=== PATIENT | male | born 1955 | race Caucasian/White ===

== ENCOUNTER → 2021-06-27 15:04 | Outpatient (BNVA) | payer OTHER, SELFPAY | PROVIDERS: PCP Internal Medicine; Visit Provider Urology ==

== ENCOUNTER 2024-07-22 10:19 | Outpatient (AMB) | payer OTHER, SELFPAY ==
--- NOTE | 2024-07-22 10:22 | MHC.OFFVIS ---
Intake Visit Reasons: 1Y PSA(set) Intake Note: Patient is Present for Follow Up PSA Urology Medication:None Antibiotic Allergies: Penicillin Blood Thinners: None LAB: 07/09/2024 - PSA: 2.6 I[employer] Websphere Commerce Developer Required: No Accompanied by: Self / Same As Patient Allergies penicillin G Allergy (Unknown, Verified 07/22/24 10:23) Unknown HPI Comments Details: Cristopher DAWSON is a very pleasant male. He is a patient of Dr. Duarte. He is seen in the office today for the following urologic conditions. - lower urinary tract symptoms Yearly follow-up PSA stable Effective urinary parameters Discussed neighbor who had recently moved New neighbor had sold prior house in [place] to [place] Elevated PSA/Abnormal LEO:? PSA around 3 Has been maintaining activity Good urinary parameters Follow-up 1 year with PSA ? Current management is?observation.? Laboratory investigations include?a total PSA evaluation ?05/2016 1.4, 07/2017 2.7, 02/16 1.8, 03/19 1.8, 04/20 2.2, 10/22 2.3, 06/22 3.0, 06/24 2.6 ? Individualized Prostate Cancer Risk Calculator?< 5% high risk, Would like to continue with observation and understands and accepts the risks of a possible delay in diagnosis.? Overall symptoms are?mild.? Therapeutic plan will be?continued surveillance.? [facility] Medical History Benign prostatic hyperplasia without lower urinary tract symptoms Primary osteoarthritis, left shoulder Primary osteoarthritis of left knee Rising PSA level Rotator cuff impingement syndrome of left shoulder Surgical History History of surgery Review of Systems Const Denies chills and Denies fever(s) Card Reports no additional complaints and Denies syncope Resp Denies cough GI Denies abdominal pain and Denies heartburn Reports as per HPI and Denies change in libido Neuro Denies syncope Psych Denies change in libido Endo Denies change in libido Physical Exam Const General: cooperative, healthy appearing, comfortable and no acute distress Orientation/consciousness: patient oriented x3 HEENT Face and sinus: Yes normal facial exam Mouth: moist mucous membranes Neck Neck: Yes normal visual inspection, Yes full ROM and Yes trachea midline Chest Chest palpation & inspection: normal inspection of the chest Resp Effort & Inspection: normal respiratory effort, able to speak in complete sentences and no respiratory distress GI Inspection: Yes normal to inspection Back/Spine/Pelvis Cervical Spine: normal cervical lordosis Thoracic/Lumbar Spine: thoracic and lumbar spine normal to inspection Skin General skin exam: no rashes or lesions noted Neuro General: patient oriented x3, gait normal, tone normal and moves all extremities Extrem General: Yes normal to inspection and Yes capillary refill normal Assessment & Plan Assessment & Plan (1) Benign prostatic hyperplasia without lower urinary tract symptoms: Code(s): N40.0 - Benign prostatic hyperplasia without lower urinary tract symptoms Category: Medical Plan Twelve month follow-up Orders: Orders Prostate Specific Antigen 364 Days N40.0 - Benign prostatic hyperplasia without lower urinary tract symptoms Patient Instructions: Imaging studies, laboratory and physical exam results were discussed and reviewed in detail. No major barriers to patient understanding were identified. An opportunity to ask questions regarding the treatment plan was provided. All questions were answered. The patient expressed understanding and agreement with the above treatment plan. The patient is aware they should contact our office by phone for worsening of their current condition or the appearance of new urologic symptoms. Compliance is encouraged with any medications and followup testing that is ordered. It is a privilege to participate in the urologic care of your patient. If you have any questions or concerns regarding treatment for the above conditions, or other urologic issues, please do not hesitate to contact me. The office telephone contact is [phone]. This note is constructed using voice recognition software. While every effort has been made to ensure accuracy chemical etching processor errors may have been included. Yours sincerely, Dr Yaakov Quinones MD, [facility] - Urology Providers of Expert, Compassionate Care for the Genitourinary System Coding Level of Care Code Est Pt Level 4 (43571) Diagnoses Benign prostatic hyperplasia without lower urinary tract symptoms N40.0
== END 2024-07-22 11:12 | disposition home or self-care (01) ==
PROVIDERS: PCP Internal Medicine; Visit Provider Urology
DX: N40.0 Benign prostatic hyperplasia without lower urinary tract symptoms (principal)
CPT/HCPCS: 99214

== ENCOUNTER 2025-07-22 10:51 | Outpatient (AMB) | payer MEDICARE, SELFPAY ==
--- OUTSIDE RECORDS SUMMARY | 2025-07-19 14:00 | XMS_ITS | Encounter Summary ---
Author Organization Formerly [facility] Address [address] [place] [address] Care Team Providers Care Tire Building Supervisor Name Role Phone Cole Duarte MD Primary Care Provider [phone] Kumar Patino MD Unavailable [phone] Reason for Visit * Reason Comments OT Treatment * Rehabilitation (Routine) - Authorized Specialty Diagnoses / Procedures Referred By Contact Referred To Contact Occupational Therapy / Rehabilitation Diagnoses Status post total shoulder replacement, unspecified laterality Fernando Arreola MD [address] [place] [address] Phone: tel:[phone] fax:[phone] [facility] [address] [place] [address] Phone: tel: fax: Referral ID Status Reason Start Date Expiration Date Visits Requested Visits Authorized [id number] Authorized Support Services 08/31/2025 200 200 Encounter Details Date Type Department Care Team (Late st Contact Info) Description 07/19/2025 2:00 PM EST Treatment [facility] [address] [facility] [address] [place] [phone] System, Provider Not In Connie Mancilla, OT [address] [place] [address] Primary osteoarthritis of left shoulder (Primary Dx); S/P reverse total shoulder arthroplasty, left Social History Tobacco Use Types Packs/Day Years Used Date Smoking Tobacco: Former Cigarettes Smokeless Tobacco: Never Comments:For a few years as a teen Alcohol Use Standard Drinks/Week Comments Yes 0 (1 standard drink = 0.6 oz pure alcohol) 6-8 drinks/weekend advised to stop 2 weeks before surgery AUDIT-C Answer Date Recorded Q1: How often do you have a drink containing alc ohol? 2-3 times a week 10/24/2023 Q2: How many drinks containi ng alcohol do you have on a typical day when you are drinking? 3 or 4 10/24/2023 Q3: How often do you have si x or more drinks on one occasion? Never 10/24/2023 Sex and Gender Information Value Date Recorded Sex Assigned at Male 11/12/2023 3:25 PM EDT Legal Sex Male 11:33 PM EDT Gender Identity Male 09/04/2023 12:28 PM EST Sexual Orientation Heterosexual (straight) 11/12 7:00 AM EDT documented as of this encounter Miscellaneous Notes * Daily/Treatment Note - Connie Mancilla OT - 07/21/2025 7:57 AM EST Occupational Therapy Daily Note Diagnoses ICD-10-CM 1. Primary osteoarthritis of left shoulder M19.012 2. S/P reverse total shoulder arthroplasty, left Z96.612 Interpretation Services: Subjective: Daily Subjective - FriJuly 19, 2025 Row Name Treatment from 07/19/2025 in [facility] Subjective Subjective I have been using 3 pound weights sitting on my Peloton Treatment Performed: Ther Act/ Neuro/ Manual/ Therex- OT - FriJuly 19, 2025 Row Name Treatment from 07/19/2025 in [facility] Manual therapy Justification to decrease spasm and pain;to increase capsular ROM and decrease pain;improve scar mobility 1 scar mobs along anterior scar length 2 Manual stretch to shoulder flexion and scaption to end-ranges within patient tolerance 3 Gentle manual stretch to ER at side with minimal OP, IR to stomach Neuro-muscular Re-education Justification to increase static and dynamic stability 6 RTB rows 2 x 10 Therapeutic Procedures Justification to increase range of motion, strength and endurance 1 AAROM shoulder flexion in supine with cane x 10 3 Pulleys flexion x 3 min Assessment/ Plan: Daily Assessment and Plan - Tue July 19, 2025 Row Name Treatment from 07/19/2025 in [facility] Assessment/ Plan Assessment Patient reports self progression and performing shoulder abduction with 3 pound weights.Review of postoperative protocol and that he should not be performing concentric shoulder strengthening at less than 6 weeks. Cautioned patient against weightbearing excessively, at 6 weeks lifting increases to 5 pound max. Plan Progress to next phase of protocol at 6 weeks. Objective Measurements: documented in this encounter Plan of Treatment Not on file documented as of this encounter Goals Goal Patient Goal Type Associated Problems Recent Progress Patient-Stated? Author OT LTGs Occupational Therapy No Connie Mancilla OT Note: L shoulder active flexion will increase to at least 130 deg to reach OH Patient will demonstrate independence with HEP, including upgrades Patient c/o pain will improve to < 2/10 at worst for improved activity tolerance during ADL/IADL performance PROMIS UE score will improve to > 40 demonstrating improved functional performance Length of goals: 6 weeks OT STGs Occupational Therapy No Connie Mancilla OT Note: L shoulder passive flexion will increase to at least 120 deg in prep for progression of AROM PROMIS UE score will improve to at least 37.4 demonstrating improved functional performance Length of goals: 3 weeks PT LTG 1 Physical Therapy On track(2023 3:40 PM EDT) No Monalisa Groves, PT Note: Patient will improve left hip flexor and quad strength to 4+ out of 5 to be able to perform sit to stand transfers 5 out of 5 times without upper extremity support without loss of balance and without left knee pain within 8 weeks. Patient will be able to ambulate on uneven surface without assistive device independently x 60 minutes without left knee pain within 8 weeks. Decrease LEFS score by 20 points within 8 weeks. This documentation is for closing of the episode of care. The patient was not treated on the date of this documentation and there are no charges associated with this documentation. documented as of this encounter Visit Diagnoses Diagnosis Primary osteoarthritis of left shoulder- Primary S/P reverse total shoulder arthroplasty, left documented in this encounter Care Teams Tire Building Supervisor Relationship Specialty Start Date End Date Cole Duarte MD [address] [place] [id number] PCP - General Internal Medicine 09/05/23 Kumar Patino MD [address] [place] [id number] Surgery, Orthopedic 10/24/23 documented as of this encounter
--- OUTSIDE RECORDS SUMMARY | 2025-07-20 15:17 | XMS_ITS | Encounter Summary ---
Author Organization [facility] Address [address] [place] [address] Care Team Providers Care Nanotechnologist Name Role Phone Cole Duarte MD Primary Care Provider [phone] Reason for Referral * Imaging (Routine) - Authorized Specialty Diagnoses / Procedures Referred By Contac t Referred To Contact Radiology Diagnoses Unspecified hearing loss, right ear Procedures MR Brain wo and w Contrast Cole Duarte MD [address] [place] [address] Phone: tel: fax: [facility] Referral ID Status Reason Start Date Expiration Date V isits Requested Visits Authorized [id number] Authorized 07/19/2025 07/19/2026 1 1 Reason for Visit * Imaging (Routine) - Authorized Specialty Diagnoses / Procedures Referred By Contac t Referred To Contact Radiology Diagnoses Unspecified hearing loss, right ear Procedures MR Brain wo and w Contrast Cole Duarte MD [address] [place] [address] Phone: tel: fax: [facility] Referral ID Status Reason Start Date Expiration Date V isits Requested Visits Authorized [id number] Authorized 07/19/2025 07/19/2026 1 1 Encounter Details Date Type Department Care Team (Latest Contact Info) Description 07/20/2025 3:17 PM EST - 07/20/2025 11:59 PM EST Hospital Encounter [facility] MRI [address] [place] [address] Unspecified hearing loss, right ear Discharge Disposition: Home or Self Care Social History Tobacco Use Types Packs/Day Years Used Date Smoking Tobacco: Former Smokeless Tobacco: Never Alcohol Use Standard Drinks/Week Comments Yes 0 (1 standard drink = 0.6 oz pur e alcohol) Sex and Gender Information Value Date Recorded Sex Assigned at Male 08/13/2024 12:05 PM EST Legal Sex Male 3:55 PM EST Gender Identity Male 08/13/2024 12:05 PM EST Sexual Orientation Straight 08/13/2024 12 :05 PM EST documented as of this encounter Medications at Time of Discharge estazolam (PROSOM) 2 mg tablet 08/31/2019 multivitamin (MULTIPLE VITAMINS ORAL) Take by mouth. triamcinolone (KENALOG) 0.1 % cream Apply to affected area BID x 2 weeks 09/13/2020 documented as of this encounter Discharge Disposition Disposition Code Departure Means Destination Home or Self Care documented in this encounter Plan of Treatment Not on file documented as of this encounter Procedures Procedure Name Priority Date/Time Associated Diagnosis Comments MR BRAIN WO AND W CONTRAST Routine 07/20/2025 4:19 PM EST Unspecified hearing loss, right ear documented in this encounter Results * MR Brain wo and w Contrast (07/20/2025 4:19 PM EST) Anatomical Region Laterality Modality Head and Neck Magnetic Resonan ce 07/21/2025 12:0 0 PM EST Impressions 07/21/2025 12:03 PM EST No acute findings or abnormal intracranial enhancement. No mass or abnormal enhancement along the 7th or 8th cranial nerves. Right mastoid and middle ear effusion. -------- FINAL REPORT -------- Dictated By: JONNIE GAALVIZ Dictated Date: 07/21/2025 12:00 ET Assigned Physician: JONNIE GALAVIZ Reviewed and Electronically Signed By: JONNIE GALAVIZ Signed Date: 07/21/2025 12:03 ET Workstation ID: [id number] Transcribed By: Self Edit Transcribed Date: 07/21/2025 12:00 ET Narrative 07/21/2025 12:03 PM EST PROCEDURE: Brain MRI INDICATION: Hearing loss TECHNIQUE: Multiplanar, multisequence MRI of the brain without and with contrast. 15 mL Dotarem injected intravenously without complication. COMPARISON: No priors available. FINDINGS: No acute infarct, mass effect, or intracranial hemorrhage. Brain parenchyma is normal in signal. No abnormal intracranial enhancement or susceptibility artifact. Sella and foramen magnum are normal. Dedicated images performed through the internal auditory canals demonstrate no mass or abnormal enhancement along the 7th of the right cranial nerves. Right mastoid and middle ear effusion. The inner ear structures demonstrate normal T2 signal. Major intracranial arterial flow voids are within normal limits. Scattered mucosal thickening seen throughout the sinuses. Left mastoid air cells are clear. Orbits and extra cranial soft tissues are normal. Calvarium is normal. Procedure Note Jonnie Galaviz MD - 07/21/2025 PROCEDURE: Brain MRI INDICATION: Hearing loss TECHNIQUE: Multiplanar, multisequence MRI of the brain without and withcontrast. 15 mL Dotarem injected intravenously without complication. COMPARISON: No priors available. FINDINGS: No acute infarct, mass effect, or intracranial hemorrhage. Brain parenchyma is normal in signal. No abnormal intracranialenhancement or susceptibility artifact. Sella and foramen magnum are normal. Dedicated images performed through the internal auditory canalsdemonstrate no mass or abnormal enhancement along the 7th of the rightcranial nerves. Right mastoid and middle ear effusion. The inner ear structuresdemonstrate normal T2 signal. Major intracranial arterial flow voids are within normal limits. Scattered mucosal thickening seen throughout the sinuses. Left mastoidair cells are clear. Orbits and extra cranial soft tissues are normal. Calvarium is normal. IMPRESSION: No acute findings or abnormal intracranial enhancement. No mass orabnormal enhancement along the 7th or 8th cranial nerves. Right mastoid and middle ear effusion. -------- FINAL REPORT -------- Dictated By: JONNIE GALAVIZ Dictated Date: 07/21/2025 12:00 ET Assigned Physician: JONNIE GALAVIZ Reviewed and Electronically Signed By: JONNIE GALAVIZ Signed Date: 07/21/2025 12:03 ET Workstation ID: [id number] Transcribed By: Self Edit Transcribed Date: 07/21/2025 12:00 ET Cole Duarte MD IMG MRI PROCEDURES Final Res ult documented in this encounter Visit Diagnoses Diagnosis Unspecified hearing loss, right ear documented in this encounter Administered Medications Inactive Administered Medications - up to 3 most recent administrations Medication Order MAR Action Action Date Dose Rate Site gadoterate meglumine (CLARISCAN, DOTAREM) injection 15 mL 15 mL, intravenous, Once in imaging, Starting on Fri07/20/25 at 1620, For 1 dose Given 07/20/2025 4:20 PM EST 15 mL documented in this encounter Orders Medications Ordered That Shane ht Not Have Been Administered Count Last Ordered Date First Ordered Date gadoterate meglumine (MEG CAN, DOTAREM) injection 15 mL 1 07/20/2025 documented in this encounter Care Teams Nanotechnologist Relationship Specialty Start Date End Date Cole Duarte MD [address] [place] [id number] PCP - General Internal Medicine 02/16/18 documented as of this encounter
--- NOTE | 2025-07-22 10:52 | A.OFFVIS_ITS ---
Intake Visit Reasons: 1Y PSA/PVR(set) Intake Note: Patient Is Present for PSA/PVR Urology Med: None Antibiotic Allergy: Penicillin Blood Thinner: None PVR: 925 PSA: 2.6 07/14/2025 Mobile Ui/Ux Designer Required: No Accompanied by: Self / Same As Patient Allergies penicillin G Allergy (Unknown, Verified 07/22/25 10:55) Unknown HPI Comments Details: Cristopher DAWSON is a very pleasant male. He is a patient of Dr. Duarte. He is seen in the office today for the following urologic conditions. - lower urinary tract symptoms Yearly follow-up Adequate stream Does notice some weakness more frequently than he did PVR high today Discussed use of Flomax Three-month follow-up uroflow Elevated PSA/Abnormal LEO:? PSA around 3 Has been maintaining activity Good urinary parameters Follow-up 1 year with PSA ? Current management is?observation.? Laboratory investigations include?a total PSA evaluation ?05/2016 1.4, 07/2017 2.7, 02/16 1.8, 03/19 1.8, 04/20 2.2, 10/22 2.3, 06/22 3.0, 06/24 2.6, 06/25 2.5 ? Individualized Prostate Cancer Risk Calculator?< 5% high risk, Would like to continue with observation and understands and accepts the risks of a possible delay in diagnosis.? Overall symptoms are?mild.? Therapeutic plan will be?continued surveillance.? [facility] Medical History Benign prostatic hyperplasia without lower urinary tract symptoms Primary osteoarthritis, left shoulder Primary osteoarthritis of left knee Rising PSA level Rotator cuff impingement syndrome of left shoulder Surgical History History of surgery Review of Systems Const Denies chills and Denies fever(s) Card Reports no additional complaints and Denies syncope Resp Denies cough GI Denies abdominal pain and Denies heartburn Reports as per HPI and Denies change in libido Neuro Denies syncope Psych Denies change in libido Endo Denies change in libido Physical Exam Const General: cooperative, healthy appearing, comfortable and no acute distress Orientation/consciousness: patient oriented x3 HEENT Face and sinus: Yes normal facial exam Mouth: moist mucous membranes Neck Neck: Yes normal visual inspection, Yes full ROM and Yes trachea midline Chest Chest palpation & inspection: normal inspection of the chest Resp Effort & Inspection: normal respiratory effort, able to speak in complete sentences and no respiratory distress GI Inspection: Yes normal to inspection Back/Spine/Pelvis Cervical Spine: normal cervical lordosis Thoracic/Lumbar Spine: thoracic and lumbar spine normal to inspection Skin General skin exam: no rashes or lesions noted Neuro General: patient oriented x3, gait normal, tone normal and moves all extremities Extrem General: Yes normal to inspection and Yes capillary refill normal Office Procedures Post Void Residual Post Residual Void Post Void Residual (PVR): 925 07466-Fobg Void Residual by ultrasound Assessment & Plan Assessment & Plan (1) Incomplete emptying of bladder due to benign prostatic hyperplasia: Code(s): N40.1 - Benign prostatic hyperplasia with lower urinary tract symptoms; R33.9 - Retention of urine, unspecified Category: Medical Plan Start Flomax Three-month follow-up uroflow Orders: Orders AMB Post Void Residual by ultrasound Today N40.0 - Benign prostatic hyperplasia without lower urinary tract symptoms Medications: New tamsulosin (Flomax) 0.4 mg PO BEDTIME 30 tabs 2RF 30 days N40.1 - Benign prostatic hyperplasia with lower urinary tract symptoms, R33.9 - Retention of urine, unspecified Patient Instructions: This note is constructed using voice recognition software. While every effort has been made to ensure accuracy clinical medical transcriptionist errors may have been included. Imaging studies, laboratory and physical exam results were discussed and reviewed in detail. No major barriers to patient understanding were identified. An opportunity to ask questions regarding the treatment plan was provided. All questions were answered. The patient expressed understanding and agreement with the above treatment plan. The patient is aware they should contact our office by phone for worsening of their current condition or the appearance of new urologic symptoms. Compliance is encouraged with any medications and followup testing that is ordered. It is a privilege to participate in the urologic care of your patient. If you have any questions or concerns regarding treatment for the above conditions, or other urologic issues, please do not hesitate to contact me. The office telephone contact is [phone]. Sincerely, Dr Yaakov Quinones MD, [facility] - Urology Compassionate Specialist Care for the Genitourinary System Coding Level of Care Code Est Pt Level 4 (29653) Diagnoses Incomplete emptying of bladder due to benign prostatic hyperplasia N40.1; R33.9 CPT Codes Post Residual Void - PVR CPT Code: 63327-Ueue Void Residual by ultrasound ([id number])
--- OUTSIDE RECORDS SUMMARY | 2025-07-22 11:42 | XMS_ITS | Data Portability ---
Author Organization [place] - [facility], Allergy Address [address] [place] [address] Care Team Providers Care Wire Stitcher Operator Name Role Phone DANIEL IRWIN Primary Care Provider [phone] Assessment Encounter Date Assessment Date Assessment LastModified by Organization Details LastModified Time 07/21/2025 07/21/2025 Assessment: - Middle ear effusion, right ear. -Bilateral high-frequency sensorineural hearing loss with an additional conductive component in the right ear due to presence of middle ear effusion - Normal nasopharyngoscopy Plan: The patient will begin treatment with a Medrol dose pack (systemic steroids) to reduce inflammation and break the cycle of fluid accumulation. Additionally, he is instructed to purchase [id number] Flonase (fluticasone nasal spray) to be used 2 puffs in both nostrils daily for topical decongestion and inflammation reduction. He is advised to perform the Valsalva maneuver up to 10 times daily to help clear fluid from the middle ear. The patient is informed that the nasal spray may take up to a week to show effects and should be used daily until the follow-up appointment. Potential side effects of steroids, including mood changes and stomach upset, are discussed, and he is advised to use Mylanta if needed. If symptoms persist after one month, the possibility of a myringotomy to drain the fluid and/or place a tube in the eardrum will be considered. The patient is scheduled for a follow-up in one month to assess progress. Not available 07/21/2025 17:35:51 Plan of Treatment Reminders Order Date Submit Date Provider Last Modified By Organization Details Last Modified Time Details Appointments Establish ed 15 2024 08:30A M JORGITO PUENTE MD Not available Not available Not available Lab None recorded. Referral None recorded. Procedures None recorded. Surgeries None recorded. Imaging None recorded. Medication Orders Medrol (Keith) 4 mg tablets in a dose pack [address] [facility] ([place], [place])/Pharmacy #[id number], [address] [place], [address], 07/21/2025 16:09:45 Patient TargetsNo targets recorded. Patient Instructions Encounter Date Encounter Id Patient Instructions Last Modified By Organization Details Last Modified Time 07/21/2025 [id number] - Begin Medrol dose pack as prescribed. - Purchase and use Flonase nasal spray daily, two puffs per nostril. - Perform Valsalva maneuver up to 10 times daily to help clear fluid. - Monitor symptoms and report any significant changes. - Follow up in one month or sooner if symptoms worsen. Not available 07/21/2025 16:14:15 Please note: Parts of this encounter note have been generated by AI based on audio conversation. Patient consent was required prior to utilizing this technology. Content review was required prior to finalizing the note. Not available 07/21/2025 16:14:15 Reason for Referral None Reported. Results Created Date Observation Date Name Description Value Unit Range Abnormal Flag Note LastModifiedBy Organization Detail LastModifiedTime 07/22/20 audio gram No observ ation record ed. BARCODE Not Available 2024 10:20:35 Result Notes None recorded. Problems Name Problem SNOMED Code Status Onset Date Resolution Date Notes Provider Name and Address Organization Details Recorded Time Obstructi ve sleep apnea syndrome 66292197 Active 2021 Obstructi ve sleep apnea (adult) (pediatri c); Note: Date Diagnosed : 01/22/2022 4:13 PM (G47.33) Not Available [facility] 4 03:32:52 Snoring 74713089 Active 2021 Snoring; Note: Date Diagnosed : 01/22/2022 4:13 PM (R06.83) Not Available [facility] 4 03:32:52 Bilateral hearing loss 89223771 Active 2024 SOLO RIBEIRO [place], [facility]-[address] [place], [address] , [place] [facility] 15:20:56 Mixed conductiv e AND sensorine ural hearing loss 25899302 Active 2024 SOLO RIBEIRO [place], CCC-A [address] [facility],[place] [address], [place], [address] , [place] - [facility] 15:21:14 Chronic serous otitis media of right ear 982716027 Active 2024 JORGITO PUENTE MD [address] [facility],[place] [address], [place], [address] , [place] [facility] 16:07:49 Dysfuncti on of right eustachia n tube [id number] 01252 [facility] 2024 JORGITO PUENTE MD [address] [place] [address],[place] [address], [place], [address] , [place] [facility] 16:08:07 Problem Notes None recorded. Procedures Surgical History Date Name Laterality Status Provider Name and Address Organization Details Recorded Time 025 Fiberoptic Nasopharyngoscopy completed JORGITO PUENTE MD [address] [place] [address],[place] [address], [place], [address], [place] [facility] 07/21/2025 16:07:21 025 Comp Audio with Tymps - 78894 & 18495 completed SOLO RIBEIRO [place], [facility] [address] [facility],[place] [address], [place], [address], [place] [facility] 07/21/2025 15:21:40 total knee replacement completed Luzma Gandara [place] - [facility] 07/21/2025 15:42:07 total shoulder replacement completed Luzma Gandara [place] - [facility] 07/21/2025 15:42:15 appendectomy completed Luzma Gandara [place] - [facility] 07/21/2025 15:42:20 excision of skin carcinoma completed Luzma Gandara [place] - [facility] 07/21/2025 15:43:06 Imaging Results None recorded. Procedure Notes None recorded. Medical Equipment None Reported. Allergies Allergen ID Allergen Name Allergen Category Reaction Reaction Severity Criticality Documentation Date Start Date Code Code System Note Provider Name and Address Organization Details Recorded Time 074165 Product containin g penicilli n (product) medicatio n Not available Not available Not available 07/21/20252018 29276 8001 SNOMED Not Available [place] - External Data Service - prod 5 14:24:00 47162 Penicilli n Not available other Not available Not available 01/13/2024 22312 RxNorm React ion: Unkno wn; Not Available [facility] 4 00:49:06 Medications Name Sig Start Date Stop Date Status Note LastModified by Organization Details LastModified Time estazolam 2 mg tablet TAKE 1 TABLET BY MOUTH EVERYDAY AT BEDTIME 07/21 completed Not Available Not Available Not Available clindamycin HCl 300 mg capsule TAKE 1 CAPSULE BY MOUTH THREE TIMES A DAY 07/12 completed Not Available Not Available Not Available trazodone 50 mg tablet TAKE 1 TABLET BY MOUTH EVERY DAY AT BEDTIME NEEDED FOR 30 DAYS 07/21 completed Not Available Not Available Not Available ibuprofen 800 mg tablet TAKE 1 TABLET BY MOUTH EVERY 6 HOURS NEEDED FOR SHOULDER PAIN DIRECTED AROUND SHOULDER SURGERY 07/21 completed Not Available Not Available Not Available Medrol (Keith) 4 mg tablets in a dose pack Take 1 dose pk by oral route. 2024 active Not Available Not Available Not Avai lable oxycodone-a cetaminophe n 5 mg-325 mg tablet TAKE 1 TABLET BY MOUTH EVERY 4 TO 6 HOURS NEEDED FOR PAIN 07/21 completed Not Available Not Available Not Available ammonium lactate 12 % topical cream APPLY TO HANDS 2-4 TIMES A DAY 07/21 completed Not Available Not Available Not Available ibuprofen 600 mg tablet TAKE 1 TABLET BY MOUTH EVERY 6 TO 8 HOURS NEEDED 07/21 completed Not Available Not Available Not Available fluticasone propionate 50 mcg/actuati on nasal spray,suspe nsion SPRAY 1 SPRAY INTO EACH NOSTRIL TWICE A DAY FOR 30 DAYS 07/21 completed Not Available Not Available Not Available oxycodone 5 mg tablet TAKE 1 TABLET BY MOUTH EVERY 6 HOURS NEEDED FOR SHOULDER PAIN DIRECTED BY SURGEON'S OFFICE. 07/21 completed Not Available Not Available Not Available chlorhexidi ne gluconate 0.12 % mouthwash SWISH AND SPIT 15 ML IN THE MORNING AND IN THE EVENING FOR 2 WEEKS 07/21 completed Not Available Not Available Not Available Plenvu 140 gram-9 gram-5.2 gram powder packs TAKE DIRECTED 07/21 completed Not Available Not Available Not Available Vitals Date Recorded Body height Body mass index (BMI) Body weight Provider Name and Address Organization Details Last Updated DateTime 07/21/2025 177.8 cm 25.1 kg/m2 51779.66 g Luzma Gandara [place] - [facility] 07/21/2025 15:41:26 Social History None recorded. Functional Status None recorded. Mental Status None recorded. Family History Nothing Reported. Medical History Condition Response Cancer Y Arthritis Y Past Encounters Encounter ID Performer Location Encounter Start Date Encounter Closed Date Diagnosis/Indication Diagnosis SNOMED-CT Code Diagnosis ICD10 Code Diagnosis IMO Codes Diagnosis Note [id number] JORGITO PUENTE MD [facility] [address] [address] 07/21/2025 14:25:31 07/21/2025 16:37:03 Chronic serous otitis media of right ear 784106011 H65.21 858988 Dysfunctio n of right eustachian tube 2654771688 335043 H69.91 69947228 Bilateral hearing loss 35246830 H90.A22 72614403 Audiologic al evaluation results:Ri ght ear:Mild to severe mixed hearing loss with excellent word recognitio n.Left ear:Normal hearing thru 2000Hz dropping to a moderate SNHL with good word recognitio n. Tympanomet ry:Right Ear:Type BLeft Ear:Type A Mixed cond uctive AND sensorineural hearing loss 63709453 H90.A31 [id number] SOLO RIBEIRO [place], [facility] [address] [address] 07/21/2025 14:25:00 07/21/2025 16:15:48 Bilateral hearing loss 08903172 H90.A22 06181741 Audiologic al evaluation results:Ri ght ear:Mild to severe mixed hearing loss with excellent word recognitio n.Left ear:Normal hearing thru 2000Hz dropping to a moderate SNHL with good word recognitio n. Tympanomet ry:Right Ear:Type BLeft Ear:Type A Mixed cond uctive AND sensorineural hearing loss 58278728 H90.A31 73255314 Health Concerns Section Related Observation LastModified by Organization Detai ls LastModified Time None Recorded Concern Status LastModified by Organization Details LastModified Time None Recorded Advance Directives Directive None Recorded Payers Insurance Date Sequence Insurance Name Policy Number Policy Woodard Covered Member ID Woodard Member ID Guarantor Name 07/21/2025 1 [place]: [employer] Cristopher Cook [id number] Cristopher Cook Jr 07/21/2025 2 A[employer] (MEDICARE SUPPLEMENT) Cristopher Cook [id number] Cristopher Cook Jr Notes Date Note Type Note Provider Name and Address Organization Details Recorded Time 07/21/2025 text/html Longstanding hearing loss becoming more pronounced. SOLO RIBEIRO MA, [facility]-A [address] [place] [address], [phone], [facility] - [facility] 07/21/2025 15:23:50 07/21/2025 text/html Cristopher Cook Jr is a 70-year-old male who presents with a blockage sensation and intermittent humming in the right ear. He reports a history of similar symptoms in 2010, which resolved after a period of watchful waiting. The current episode began approximately six months ago, following water skiing and a college reunion in January, where he initially suspected water in the ear. He describes episodes of temporary relief when turning his head or experiencing nasal popping, followed by recurrence of symptoms. He notes increased mucus production recently, with nasal congestion and sneezing, particularly at night. An MRI performed at [facility] revealed fluid behind the right eardrum, consistent with middle ear effusion. He denies being sick but acknowledges possible allergies. His hearing test results are similar to those from 2011, with age-related high-frequency hearing loss noted in the left ear and mixed hearing loss in the right ear in the presence of flat tympanometry consistent with middle ear effusion. He has a history of rugby-related injuries, including a broken nose and shoulder replacement. JORGITO PUENTE MD [address] [place] [address], [place], [phone], [facility] - [facility] 07/21/2025 17:36:11
--- OUTSIDE RECORDS SUMMARY | 2025-07-22 11:42 | XMS_ITS | Encounter Summary ---
Author Organization [facility] Address [address] [place] [address] [place] [address] Phone Care Team Providers Care Party Plan Sales Director Name Role Phone Cole Duarte MD Primary Care Provider Encounter Details Date Type Department Care Team (Late st Contact Info) Description 03/28/2025 Procedure Pass [facility] IMG 3DCTMR MG [address] [place] [address] Social History Tobacco Use Types Packs/Day Years Used Date Smoking Tobacco: Never Smokeless Tobacco: Never Education Answer Date Recorded Are you interested in more education? Not on jossy e 12/26/2022 Are you concerned about learning? Not on file 12/26/2022 No 12/26/2022 No 12/26/2022 Digital Access Answer Date Recorded No 01/27/2023 No 01/27/2023 Reliable internet access at home? Not on file 01/27/2023 Device with a working camera? Not on file Sex and Gender Information Value Date Recorded Sex Assigned at Male 12/27/2020 4:53 PM EDT Legal Sex Male 7:03 PM EST Gender Identity Male 12/27/2020 4:53 PM EDT Sexual Orientation Straight 12/27/2020 4: 53 PM EDT documented as of this encounter Plan of Treatment Not on file documented as of this encounter Visit Diagnoses Not on filedocumented in this encounter Care Teams Party Plan Sales Director Relationship Specialty Start Date End Date Cole Duarte MD [address] [place], [place] [address] PCP - General Internal Medicine 12/27/20 documented as of this encounter Additional Source Comments The information contained in this document represents components of the legal health record. It is not the complete legal health record.[facility]
--- OUTSIDE RECORDS SUMMARY | 2025-07-22 11:42 | XMS_ITS | Encounter Summary ---
Author Organization [facility] Address [facility] [employer] [facility] [address] [place] [address] Phone Care Team Providers Care Concession Cashier Name Role Phone Cole Duarte MD Primary Care Provider [phone] Encounter Details Date Type Department Care Team (Late st Contact Info) Description 06/16/2025 Orders Only [facility] [place] of [place]edic Surgery - [address] [place] [address] Juliane Broussard [address] [place] [phone] [email or web address] Pain (Primary Dx) Social History Tobacco Use Types Packs/Day Years Used Date Smoking Tobacco: Never Smokeless Tobacco: Never Alcohol Use Standard Drinks/Week Comments Yes 0 (1 standard drink = 0.6 oz pur e alcohol) socially Education Answer Date Recorded Are you interested in more education? Not on jossy e 12/26/2022 Are you concerned about learning? Not on file 12/26/2022 No 12/26/2022 No 12/26/2022 Digital Access Answer Date Recorded No 01/27/2023 No 01/27/2023 Reliable internet access at home? Not on file 01/27/2023 Device with a working camera? Not on file Intimate Partner Violence Answer Date R ecorded Are you denied basic needs s uch as food, clothing, or medical care? No 05/26/2025 In the past 12 months have y ou been in a relationship with a person who hurts, threatens, or tries to control you? No 05/26/2025 Are you denied basic needs s uch as food, clothing, or medical care? No 05/26/2025 In the past 12 months have y ou been in a relationship with a person who hurts, threatens, or tries to control you? No 05/26/2025 Sex and Gender Information Value Date Recorded Sex Assigned at Male 12/27/2020 4:53 PM EDT Legal Sex Male 7:03 PM EST Gender Identity Male 12/27/2020 4:53 PM EDT Sexual Orientation Straight 12/27/2020 4: 53 PM EDT documented as of this encounter Plan of Treatment Not on file documented as of this encounter Results * XR SHOULDER 2 VIEWS (LEFT) (06/20/2025 11:20 AM EDT) Anatomical Region Laterality Modality Shoulder Left Radiographic Slime ging 06/20/2025 2:53 PM EDT Impressions 06/20/2025 2:53 PM EDT Interval reverse total shoulder arthroplasty, no complication. Narrative 06/20/2025 2:53 PM EDT XR SHOULDER 2 OR MORE VIEWS (LEFT) Referring clinician's provided indication for this examination in [facility]: Pain COMPARISON: XR SHOULDER 2 OR MORE VIEWS (LEFT) FINDINGS: Interval reverse total shoulder arthroplasty. Hardware is intact and in anatomic position. No periprosthetic lucency or fracture. Degenerative changes of the acromioclavicular joint. Procedure Note Bry Friedman MD - 06/20/2025 XR SHOULDER 2 OR MORE VIEWS (LEFT) Referring clinician's provided indication for this examination in [facility]:Pain COMPARISON: XR SHOULDER 2 OR MORE VIEWS (LEFT) FINDINGS: Interval reverse total shoulder arthroplasty. Hardware is intact and inanatomic position. No periprosthetic lucency or fracture. Degenerativechanges of the acromioclavicular joint. IMPRESSION: Interval reverse total shoulder arthroplasty, no complication. us Alexandro Meza PA-C IMG XR UPPER EXTREMITY Fin al Result documented in this encounter Visit Diagnoses Diagnosis Pain- Primary Generalized pain Pain Generalized pain documented in this encounter Care Teams Concession Cashier Relationship Specialty Start Date End Date Cole Duarte MD [address] [place] [address] PCP - General Internal Medicine 12/27/20 documented as of this encounter Additional Source Comments The information contained in this document represents components of the legal health record. It is not the complete legal health record.[facility]
--- OUTSIDE RECORDS SUMMARY | 2025-07-22 11:42 | XMS_ITS | Encounter Summary ---
Author Organization [facility] Address [address] [place] [address] Phone Care Team Providers Care Magnetic Resonance Technologist Name Role Phone Cole Duarte MD Primary Care Provider Encounter Details Date Type Department Care Team (Late st Contact Info) Description 02/02/2025 Procedure Pass MRI, [facility] [place] [address] [place] [address] Social History Tobacco Use Types Packs/Day Years [...] on filedocumented in this encounter Care Teams Magnetic Resonance Technologist Relationship Specialty Start Date End Date Cole Duarte MD [address] [place] [address] PCP - General Internal Medicine 12/27/20 documented as of this encounter Additional Source Comments The information contained in this document represents components of the legal health record. It is not the complete legal health record.[facility]
--- OUTSIDE RECORDS SUMMARY | 2025-07-22 11:42 | XMS_ITS | Encounter Summary ---
Author Organization [facility] Address [facility] [address] [place] [address] Phone Care Team Providers Care Ethnographer Name Role Phone Cole Duarte MD Primary Care Provider Encounter Details Date Type Department Care Team (Late st Contact Info) Description 06/08/[address] [facility] Periop Dept [address] [place] [address] Social History Tobacco Use Types Packs/Day Years [...] on filedocumented in this encounter Care Teams Ethnographer Relationship Specialty Start Date End Date Cole Duarte MD [address] [place] [address] PCP - General Internal Medicine 12/27/20 documented as of this encounter Additional Source Comments The information contained in this document represents components of the legal health record. It is not the complete legal health record.[facility]
--- OUTSIDE RECORDS SUMMARY | 2025-07-22 11:42 | XMS_ITS | Encounter Summary ---
Author Organization [facility] Address [address] [place] [address] [place] [address] Phone Care Team Providers Care Acetylene Cylinder Packing Mixer Name Role Phone Cole Duarte MD Primary Care Provider Encounter Details Date Type Department Care Team (Late st Contact Info) Description 02/02/2025 Procedure Pass [facility] [place] [address] [place] [address] Social History Tobacco Use Types Packs/Day Years [...] on filedocumented in this encounter Care Teams Acetylene Cylinder Packing Mixer Relationship Specialty Start Date End Date Cole Duarte MD [address] [place] [address] PCP - General Internal Medicine 12/27/20 documented as of this encounter Additional Source Comments The information contained in this document represents components of the legal health record. It is not the complete legal health record.[facility]
--- OUTSIDE RECORDS SUMMARY | 2025-07-22 11:42 | XMS_ITS | Encounter Summary ---
Author Organization [facility] Address [address] [place] [address] Phone Care Team Providers Care Legal Biller Name Role Phone Cole Duarte MD Primary Care Provider [phone] Reason for Referral * MRI/CAT Scan - Pending Review Specialty Diagnoses / Procedures Referred By Tamir deluna Referred To Contact Radiology Diagnoses Primary osteoarthritis of left shoulder Procedures CT 3D Reconstruction Shoulder Fernando Zaragoza MD [address] [place] [address]. [address] [address] Phone: tel: fax: [email or web address] Referral ID Status Reason Start Date Expiration Date V isits Requested Visits Authorized [id number] Pending Review 03/28/2025 1 1 Encounter Details Date Type Department Care Team (Latest Contact Info) Description 03/28/2025 Ancillary Orders [facility] [place] [address] [place] [address] Fernando Zaragoza MD [address] [address] [email or web address] Primary osteoarthritis of left shoulder (Primary Dx) Social History Tobacco Use Types [...] documented as of this encounter Results * CT 3D Reconstruction Shoulder (04/21/2025 4:53 PM EDT) Anatomical Region Laterality Modality Shoulder Left, Shoulder Right Co mputed Tomography 05/06/2025 11:5 8 AM EDT Narrative 05/06/2025 1:19 PM EDT Please refer to the primary CT accession number [id number] for the full report indicating 3D images were created on an independent workstation and interpreted. Procedure Note Mahamed Castillo MD - 05/06/2025 Please refer to the primary CT accession number [id number] for the fullreport indicating 3D images were created on an independent workstation andinterpreted. Fernando Zaragoza MD IMG CT Final Result documented in this encounter Visit Diagnoses Diagnosis Primary osteoarthritis of left shoulder- Primary Primary osteoarthritis of left shoulder documented in this encounter Care Teams Legal Biller Relationship Specialty Start Date End Date Cole Duarte MD [address] [place] [address] PCP - General Internal Medicine 12/27/20 documented as of this encounter Additional Source Comments The information contained in this document represents components of the legal health record. It is not the complete legal health record.[facility]
--- OUTSIDE RECORDS SUMMARY | 2025-07-22 11:42 | XMS_ITS | Encounter Summary ---
Author Organization [facility] [place] [address] Care Team Providers Care Etiology Teacher Name Role Phone Cole Duarte MD Primary Care Provider [phone] Encounter Details Date Type Department Care Team (Late st Contact Info) Description 10/04/2024 Lab Requisition [facility] - Main Lab [address] [place] [phone] Arnaud Moody MD [address] [address] Encounter for screening for malignant neoplasm of colon Social History Tobacco Use Types Packs/Day Years [...] PM EST documented as of this encounter Plan of Treatment Not on file documented as of this encounter Procedures Procedure Name Priority Date/Time Associated Diagnosis Comments TISSUE EXAM Routine 10/04/2024 Encounter for screening for malignant neoplasm of colon documented in this encounter Results * Tissue Exam (10/04/2024) Final Diagnosis A. Colon, polyp at 50cm: - Tubular adenoma. 10/05/2024 11:20 AM [facility] Clinical Information Screening for colorectal malignant neoplasm Polyp 10/05/2024 11:20 AM [facility] Gross Description A. Colon, polyp at 50cm: Labeled polyp at 50 cm . Received in formalin is a 1.4 cm irregular armendariz mucosal tissue fragment with a 0.2 cm mucosal polyp at one end. The margin is inked blue. The specimen is longitudinally bisected, wrapped in paper, and entirely submitted in one cassette, two pieces, multiple levels on one slide. DAVID 10/05/2024 11:20 AM [facility] Disclaimer Unless otherwise specified, all tissue is 10% NB formalin fixed and paraffin embedded. 10/05/2024 11:20 AM [facility] Tissue Colon structure / Unknown 10/04/2024 10/04/2024 3:04 PM EST us Arnaud Moody MD LAB PATHOLOGY ORDERABLES Micaela whittaker Result [facility] [address] [place] [address], documented in this encounter Visit Diagnoses Diagnosis Encounter for screening for malignant neoplasm of colon documented in this encounter Care Teams Etiology Teacher Relationship Specialty Start Date End Date Cole Duarte MD [address] [place] [address] PCP - General Internal Medicine 02/16/18 documented as of this encounter
--- OUTSIDE RECORDS SUMMARY | 2025-07-22 11:42 | XMS_ITS | Clinical Summary ---
[place] [address] Care Team Providers Care Learning Developer Name Role Phone Cole Duarte MD Primary Care Provider [phone] Allergies Active Allergy Reactions Criticality Noted Date Comments Penicillins Hives 03/22/2022 Medications No known medications Active Problems No known active problems Social History Tobacco Use Types Packs/Day Years Used Date Smoking Tobacco: Never Smokeless Tobacco: Never Alcohol Use Standard Drinks/Week Comments Yes 10 (1 standard drink = 0.6 oz pu re alcohol) Sex and Gender Information Value Date Recorded Sex Assigned at Not on file Legal Sex Male 10:49 AM EDT Gender Identity Not on file Sexual Orientation Not on file Last Filed Vital Signs Vital Sign Reading Time Taken Comments Blood Pressure 121/99 03/22/2022 10:56 AM EDT Pulse 58 03/22/2022 10:56 AM EDT Temperature 36.8 C (98.2 F) 03/22/2022 10:56 AM EDT Respiratory Rate 16 03/22/2022 10:56 AM EDT Oxygen Saturation 98% 03/22/2022 10:56 AM EDT Inhaled Oxygen Concentration - - Weight 77.1 kg (170 lb) 03/22/2022 10:56 AM EDT Height 177.8 cm (5' 10 ) 03/22/2022 10:56 AM EDT Body Mass Index 24.39 03/22/2022 10:56 AM EDT Plan of Treatment Health Maintenance Due Date Last Done Comments CT Colonography 1957 Colonoscopy 1957 Colorectal Cancer Screening 1957 FIT DNA 1957 FIT 1957 Sigmoidoscopy (10 year) with FIT yearly 1957 Sigmoidoscopy 1957 Hepatitis C Screening 1975 Lipid Screening 1975 Tetanus/Diphtheria/Pertussis Vaccines (1 - Tdap) 02/17/1976 Pneumoccocal Vaccine: 50+ (1 of 1 - PCV) 2007 Zoster vaccine (1 of 2) 2007 Advance Directive 02/17/2012 Covid-19 Vaccine (3 - season) 2025, 11/24/2020 Influenza (Flu) vaccine (1 o f 1 - Influenza standard series) 05/02/2025 Insurance [employer] Care Teams Learning Developer Relationship Specialty Start Date End Date Cole Duarte MD PCP - General Internal Medicine 03/22/22
--- OUTSIDE RECORDS SUMMARY | 2025-07-22 11:43 | XMS_ITS | Clinical Summary ---
Author Organization [facility] Address [address] [place] [address] Care Team Providers Care Estate Planning Attorney Name Role Phone Cole Duarte MD Primary Care Provider [phone] Kumar Patino MD Unavailable [phone] Allergies Active Allergy Reactions Criticality Noted Date Comments Penicillins Hives Medium 10/24/2023 Medications estazolam (PROSOM) 2 MG tablet Take 0.5 tablets (1 mg total) by mouth nightly as needed for sleep. 3 Active multivitamin Tab tablet Take 1 tablet by mouth daily. Magnesium, Fish oil, Turmeric, Milk Thistle, Ginko Active acetaminophen (TYLENOL) 325 MG tabletIndications: Primary osteoarthritis of left knee Take 2 tablets (650 mg total) by mouth 4 times daily (every 6 hours) as needed for mild pain. 164 tablet 4 Active aspirin enteric coated (ECOTRIN LOW STRENGTH) 81 MG EC tabletIndications: Primary osteoarthritis of left knee Take 1 tablet (81 mg total) by mouth 2 (two) times a day. 56 tablet 4 Active meloxicam (MOBIC) 15 MG tabletIndications: Primary osteoarthritis of left knee Take 1 tablet (15 mg total) by mouth daily. 14 tablet 4 Active methocarbamol (ROBAXIN) 750 MG tabletIndications: Primary osteoarthritis of left knee Take 1 tablet (750 mg total) by mouth 4 (four) times a day. 120 tablet 4 Active oxyCODONE (ROXICODONE) 5 MG immediate release tabletIndications: Primary osteoarthritis of left knee Take 1-2 tablets (5-10 mg total) by mouth every 4 (four) hours as needed for moderate pain or severe pain. Max Daily Amount: 60 mg 42 tablet 4 Active PANTOprazole (PROTONIX) 40 MG EC tabletIndications: Primary osteoarthritis of left knee Take 1 tablet (40 mg total) by mouth every morning before breakfast. 14 tablet 4 Active polyethylene glycol (miraLAx) 17 g packetIndications: Primary osteoarthritis of left knee Take 1 packet (17 g total) by mouth daily as needed for constipation. 30 packet 4 Active senna (SENOKOT) 8.6 MG Tab tabletIndications: Primary osteoarthritis of left knee Take 2 tablets by mouth daily as needed for constipation. 14 tablet 4 Active diclofenac enteric coated (VOLTAREN) 75 MG EC tabletIndications: Status post total left knee replacement Take 1 tablet (75 mg total) by mouth 2 (two) times a day with meals. Administer with food avoid GI upset. 60 tablet 4 Active Active Problems Problem Noted Date Diagnosed Date OA (osteoarthritis) of knee 11/13/2023 Primary osteoarthritis of left knee 10/23/2023 Assessment & Plan (10/23/2023 1:46 PM EST): Plan Left TKA with removal of hardware with Dr. Patino on 11/13/23 Leukopenia 05/05/2019 10/23/2023 Assessment & Plan (10/23/2023 1:50 PM EST): Heme 05/2020 Sleep apnea Overview (10/28/2023): has CPAP- uses on a regular basis but not daily Assessment & Plan (10/28/2023 10:44 AM EST): Using CPAP on a regular basis but not nightly Resolved Problems Problem Noted Date Diagnosed Date Resolved Date COVID-19 12/30/2021 07/28/2024 Encounters Date Type Department Care Team Description 07/19/2025 2:00 PM EST Treatment [facility] [address] [place] [address] System, Provider Not In Connie Mancilla OT Primary osteoarthritis of left shoulder (Primary Dx); S/P reverse total shoulder arthroplasty, left 07/14/2025 10:00 AM EST Treatment [facility] [address] [place] [address] System, Provider Not In Connie Mancilla OT Primary osteoarthritis of left shoulder (Primary Dx); S/P reverse total shoulder arthroplasty, left 07/11/2025 8:00 AM EST Treatment [facility] [address] [place] [address] System, Provider Not In Connie Mancilla OT Primary osteoarthritis of left shoulder (Primary Dx); S/P reverse total shoulder arthroplasty, left 07/07/2025 8:30 AM EST Treatment [facility] [address] [place] [address] System, Provider Not In Connie Mancilla OT Primary osteoarthritis of left shoulder (Primary Dx); S/P reverse total shoulder arthroplasty, left 07/04/2025 8:00 AM EST Treatment [facility] [address] [place] [address] System, Provider Not In Connie Mancilla OT Primary osteoarthritis of left shoulder (Primary Dx); S/P reverse total shoulder arthroplasty, left 07/01/2025 1:30 PM EDT Treatment [facility] [address] [place] [address] System, Provider Not In Connie Mancilla OT Primary osteoarthritis of left shoulder (Primary Dx); S/P reverse total shoulder arthroplasty, left; Primary osteoarthritis of left knee 06/29/2025 9:30 AM EDT Evaluation [facility] [address] [place] [address] Fernando Zaragoza, DPM Mancilla, Connie, OT Primary osteoarthritis of left shoulder (Primary Dx); S/P reverse total shoulder arthroplasty, left 06/29/2025 Plan of Care Documentation [facility] [place] [address] [place] [phone] 05/04/2025 Documentation [facility] [address] [place] [address] Radha Caraballo S, PT Left Knee - PT Discharge from Last 3 Months Family History Medical History Relation Name Comments No Known Problems Brother Liver disease Father No Known Problems Sister Relation Name Status Comments Brother Alive Father (Age 47) Mother (Age 92) Sister Alive Social History Tobacco Use Types Packs/Day Years [...] Orientation Heterosexual (straight) 11/12 7:00 AM EDT Last Filed Vital Signs Vital Sign Reading Time Taken Comments Blood Pressure 115/74 11/14/2023 9:16 AM EDT Pulse 61 11/14/2023 9:16 AM EDT Temperature 35.7 C (96.3 F) 11/14/2023 9:16 AM EDT Respiratory Rate 18 11/14/2023 9:16 AM EDT Oxygen Saturation 100% 11/14/2023 9:16 AM EDT Inhaled Oxygen Concentration - - Weight 78.9 kg (174 lb) 11/13/2023 1:00 PM EDT Height 177.8 cm (5' 10 ) 11/13/2023 1:00 PM EDT Body Mass Index 24.97 11/13/2023 1:00 PM EDT Plan of Treatment Health Maintenance Due Date Last Done Comments Advance Care Planning 1955 Hepatitis C Virus Screening 1957 DTaP/Tdap/Td Vaccines (1 - Tdap) 02/17/1976 Colonoscopy 2002 Pneumococcal Vaccines 50+ (1 of 1 - PCV) 2007 Zoster (Shingles) Vaccine (1 of 2) 2007 Influenza Vaccine 04/01/2025 COVID-19 Vaccine (3 - 2024-2 6 season) 2025 12/15/2020, 11/24/2020 RSV Vaccine 50 years and older and Patients (1 - 1-dose 75+ series) 02/17/2032 Hepatitis B Vaccines Aged Out No long er eligible based on patient's age to complete this topic Goals Goal Patient Goal Type Associated Problems [...] weeks OT STGs Occupational Therapy No Connie Mancilla, ESPERANZA Note: L shoulder passive flexion will increase [...] are no charges associated with this documentation. Medical Devices Implanted Type Area Parking Inspector Device Identifier Shelf Expiration Date Model / Serial / Lot [id number] [employer] R 40gm Grn - [id number] Implanted:Qty : 1 on 11/13/2023 by Kumar Patino MD at [facility] Cement Left: Knee [employer] [id number] 01/30/2028 [id number] / / [id number] [employer] R 40gm Grn - [id number] Implanted:Qty : 1 on 11/13/2023 by Kumar Patino MD at [facility] Cement Left: Knee [employer] [id number] 05/01/2028 [id number] / / [id number] Component Femoral 9 Std Knee Left Crcte Rtn Cement Persona - [id number] Implanted:Qty : 1 on 11/13/2023 by Kumar Patino MD at [facility] Joint Prosthesis Left: Knee [employer] [id number] 08/07/2033 [id number] / / [id number] Baseplate Tibial Persona 5d G Knee Left Cement Stem Tiv - [id number] Implanted:Qty : 1 on 11/13/2023 by Kumar Patino MD at [facility] Joint Prosthesis Left: Knee [employer] [id number] 08/18/2033 [id number] / / [id number] Component Patellar Std 9.5mm 38mm Nxgn Alply Knee Sterl - [id number] Implanted:Qty : 1 on 11/13/2023 by Kumar Patino MD at [facility] Joint Prosthesis Left: Knee [employer] [id number] 07/29/2028 [id number] / / [id number] Insert Articular 8-11 13mm Knee Crcte Rtn Vivacit-E Persona - [id number] Implanted:Qty : 1 on 11/13/2023 by Kumar Patino MD at [facility] Joint Prosthesis Left: Knee [employer] [id number] 03/25/2028 [id number] / / [id number] Insurance MEDICARE PART A & B [facility] MEDICARE PART A & B [facility] Advance Directives * Full Code (Latest Code Status on File) Date Activated Date Inactivated Comments 11/13/2023 1:21 PM * Full Code Date Activated Date Inactivated Comments 11/13/2023 7:16 AM 11/13/2023 1:21 PM Care Teams Estate Planning Attorney Relationship Specialty Start Date End Date Cole Duarte MD [address] [place] [address] PCP - General Internal Medicine 09/05/23 Kumar Patino MD [address] [place] [address] Surgery, Orthopedic 10/24/23
--- OUTSIDE RECORDS SUMMARY | 2025-07-22 11:43 | XMS_ITS | Clinical Summary ---
Author Organization [facility] Address [address] [place] [address] Care Team Providers Care Fine Unhairer Name Role Phone Cole Duarte MD Primary Care Provider [phone] Allergies Active Allergy Reactions Criticality Noted Date Comments Penicillins 05/05/2019 Medications No known medications Active Problems Problem Noted Date Diagnosed Date Leukopenia 05/05/2019 Macrocytosis without anemia 05/05/2019 Social History Tobacco Use Types Packs/Day Years Used Date Smoking Tobacco: Never Smokeless Tobacco: Never Alcohol Use Standard Drinks/Week Comments Yes 0 (1 standard drink = 0.6 oz pur e alcohol) weekend,mix drinks Sex and Gender Information Value Date Recorded Sex Assigned at Not on file Gender Identity Not on file Sexual Orientation Not on file Last Filed Vital Signs Vital Sign Reading Time Taken Comments Blood Pressure 132/99 05/03/2020 11:31 AM EDT Pulse 53 05/03/2020 11:31 AM EDT Temperature 36.8 C (98.2 F) 05/03/2020 11:31 AM EDT Respiratory Rate - - Oxygen Saturation - - Inhaled Oxygen Concentration - - Weight 80.7 kg (178 lb) 05/03/2020 11:31 AM EDT Height 175.3 cm (5' 9 ) 05/03/2020 11:31 AM EDT Body Mass Index 26.29 05/03/2020 11:31 AM EDT Plan of Treatment Health Maintenance Due Date Last Done Comments Hepatitis C Screening 1957 COVID-19 Vaccine (#1) 1957 Depression Screening 1969 Preventative Health Evaluation 1975 DTap / Tdap / Td (1 - Tdap) 02/17/1976 Colon Cancer Screening (Colonoscopy) 2002 Shingrix-Zoster Vaccine (1 of 2) 2007 Fall Risk Assessment 2022 Pneumococcal Vaccine (1 of 1 - PCV) 2022 Influenza Vaccine (#1) 2025 RSV Adult > 60+ Yrs or Pregn ant (1 - 1-dose 75+ series) 02/17/2032 Hepatitis B Vaccines Aged Out No long er eligible based on patient's age to complete this topic RSV Ped < 20 months Aged Out No longe r eligible based on patient's age to complete this topic Care Teams Fine Unhairer Relationship Specialty Start Date End Date Cole Duarte MD [facility] [address] [place] [address] PCP - General Internal Medicine 04/26/19
--- OUTSIDE RECORDS SUMMARY | 2025-07-22 11:43 | XMS_ITS | Continuity of Care Document ---
Author Organization [place] [facility], [facility] Address [address] [place] [address] Care Team Providers Care Sql Database Administrator Name Role Phone DANIEL IRWIN Primary Care Provider Assessment No assessment recorded. Plan of Treatment Reminders Order Date Submit Date Provider Last Modified By Organization Details Last Modified Time Details Appointments Establish ed 15 2024 08:30A M JORGITO PUENTE MD Not available Not available Not available Lab None recorded. Referral None recorded. Procedures None recorded. Surgeries None recorded. Imaging None recorded. Medication Orders None recorded. Patient TargetsNo targets recorded. Patient InstructionsNo instructions recorded. Reason for Referral None Reported. Results Created Date Observation Date Name Description Value Unit Range Abnormal Flag Note LastModifiedBy Organization Detail LastModifiedTime 07/22/20 25 audio gram No observ ation record ed. BARCODE Not Available 2024 10:20:35 Result Notes None recorded. Problems Name Problem SNOMED Code Status Onset Date Resolution Date Notes Provider Name and Address Organization Details Recorded Time Obstructi ve sleep apnea syndrome 45442835 Active 2021 Obstructi ve sleep apnea (adult) (pediatri c); Note: Date Diagnosed : 01/22/2022 4:13 PM (G47.33) Not Available [facility] 4 03:32:52 Snoring 88281163 Active 2021 Snoring; Note: Date Diagnosed : 01/22/2022 4:13 PM (R06.83) Not Available [facility] 4 03:32:52 Bilateral hearing loss 88123017 Active 2024 SOLO RIBEIRO [place], [facility] [address] [place] [address],[address], [place], [address] , [place] - [facility] 15:20:56 Mixed conductiv e AND sensorine ural hearing loss 59172169 Active 2024 SOLO RIBEIRO [place], [facility] [address] [facility],[place] [address], [facility] [place], [address] , [place] - [facility] 15:21:14 Chronic serous otitis media of right ear 362872821 Active 2024 JORGITO PUENTE MD [address] [facility],[place] [address], [place], [address] , [place] - [facility] 16:07:49 Dysfuncti on of right eustachia n tube 34867642009 44966 Active 2024 JORGITO PUENTE MD [address] [place] [address],[place] [address], [place], [address] , [place] - [facility] 16:08:07 Problem Notes None recorded. Procedures Surgical History Date Name Laterality Status Provider Name and Address Organization Details Recorded Time 025 Fiberoptic Nasopharyngoscopy completed JORGITO PUENTE MD [address] [place] [address],[place] [address], [place], [address], [place] - [facility] 07/21/2025 16:07:21 025 Comp Audio with Tymps - 83526 & 09083 completed SOLO RIBEIRO [place], [facility] [address] [facility],[place] [address], [place], [address], [place] - [facility] 07/21/2025 15:21:40 total knee replacement completed Luzma Gandara [place] - [facility] 07/21/2025 15:42:07 total shoulder replacement completed Luzma Gandara [place] - [facility] 07/21/2025 15:42:15 appendectomy completed Luzma Gandara [place] - [facility] 07/21/2025 15:42:20 excision of skin carcinoma completed Luzma Gandara [place] - [facility] 07/21/2025 15:43:06 Imaging Results None recorded. Procedure Notes None recorded. Medical Equipment None Reported. Allergies Allergen ID Allergen Name Allergen Category Reaction Reaction Severity Criticality Documentation Date Start Date Code Code System Note Provider Name and Address Organization Details Recorded Time 855074 Product containin g penicilli n (product) medicatio n Not available Not available Not available 07/21/20252018 15878 8001 SNOMED Not Available [facility] - External Data Service - prod 5 14:24:00 01595 Penicilli n Not available other Not available Not available 01/13/2024 09226 RxNorm React ion: Unkno wn; Not Available [facility] 4 00:49:06 Medications Name Sig Start Date [...] Updated DateTime 07/21/2025 177.8 cm 25.1 kg/m2 71130.66 g Luzma Gandara [place] - [facility] 07/21/2025 15:41:26 Social History None recorded. Functional Status None recorded. Mental Status None recorded. Family History Nothing Reported. Medical History Condition Response Cancer Y Arthritis Y Past Encounters Encounter ID Performer Location Encounter Start Date Encounter Closed Date Diagnosis/Indication Diagnosis SNOMED-CT Code Diagnosis ICD10 Code Diagnosis IMO Codes Diagnosis Note [id number] JORGITO PUENTE MD [facility] [address] [address] 07/21/2025 14:25:31 07/21/2025 16:37:03 Chronic serous otitis media of right ear 200996187 H65.21 726270 Dysfunctio n of right eustachian tube 3473218025 787543 H69.91 23767840 Bilateral hearing loss 79418637 H90.A22 [id number] Audiologic al evaluation results:Ri ght ear:Mild to severe mixed hearing loss with excellent word recognitio n.Left ear:Normal hearing thru 2000Hz dropping to a moderate SNHL with good word recognitio n. Tympanomet ry:Right Ear:Type BLeft Ear:Type A Mixed cond uctive AND sensorineural hearing loss 20048995 H90.A31 [id number] SOLO RIBEIRO MA, CCC-A [facility] [address] [address] 07/21/2025 14:25:00 07/21/2025 16:15:48 Bilateral hearing loss 44943259 H90.A22 [id number] Audiologic al evaluation results:Ri ght ear:Mild to severe mixed hearing loss with excellent word recognitio n.Left ear:Normal hearing thru 2000Hz dropping to a moderate SNHL with good word recognitio n. Tympanomet ry:Right Ear:Type BLeft Ear:Type A Mixed cond uctive AND sensorineural hearing loss 37660784 H90.A31 [id number] Health Concerns Section Related Observation LastModified by Organization Detai ls LastModified Time None Recorded Concern Status LastModified by Organization Details LastModified Time None Recorded Payers Encounter Date Sequence Insurance Name Policy Number Policy Woodard Covered Member ID Woodard Member ID Guarantor Name 07/21/2025 1 [place]IC[place]: [employer] Cristopher Cook [id number] Cristopher Romero Joey Arnold 07/21/2025 2 [employer] (MEDICARE SUPPLEMENT) Cristopher Romero Joey [id number] Cristopher Romero Joey Arnold Notes Date Note Type Note Provider Name and Address Organization Details Recorded Time 07/21/2025 text/html Longstanding hearing loss becoming more pronounced. SOLO RIBEIRO [place], [facility] [address] [place] [address], [address], [facility] 07/21/2025 15:23:50 07/21/2025 text/html Cristopher Cook [...] particularly at night. An MRI performed at [facility] revealed fluid behind the right eardrum, consistent [...] nose and shoulder replacement. JORGITO PUENTE MD [address] [place] [address], [place], [address], [place] [facility] 07/21/2025 17:36:11
--- OUTSIDE RECORDS SUMMARY | 2025-07-22 11:43 | XMS_ITS | Clinical Summary ---
Author Organization [facility] Address [facility] [employer] [facility] [address] [place] [phone] Phone Care Team Providers Care Buyer Grain Name Role Phone Cole Duarte MD Primary Care Provider [phone] Allergies Active Allergy Reactions Criticality Noted Date Comments Penicillins Hives 03/22/2022 Medications omega 6-wgq-xuf-fish oil (FISH OIL) 1,200 (144-216) mg Cap Take 1,200 mg by mouth daily. 4 Active estazolam (PROSOM) 2 MG tablet Take 2 mg by mouth nightly at bedtime as needed. Active ginkgo biloba leaf extract 120 mg Tab Take 120 mg by mouth daily. 4 Active milk thist seed ext/milk thist (MILK THISTLE EXTRACT ORAL) Take 1 tablet by mouth daily. 4 Active multivit with minerals/lutein (MULTIVITAMIN 50 PLUS ORAL) Take 1 tablet by mouth daily. 4 Active fluticasone propionate (FLONASE) 50 mcg/actuation nasal spray 1 spray by Nasal route 2 (two) times a day. 5 Active oxyCODONE 5 MG immediate release tablet Take 1 tablet (5 mg total) by mouth every 6 (six) hours as needed for pain (specific location in comments) (shoulder pain post op). Partial fill ok. Take as directed by surgeon's office for post-operative shoulder pain. 20 tablet 5 Active Additional Information Patient not taking.Reported on 06/08/2025 ibuprofen (ADVIL,MOTRIN) 800 MG tablet Take 1 tablet (800 mg total) by mouth every 6 (six) hours as needed for pain (specific location in comments) (Shoulder pain). Take as directed around shoulder surgery 45 tablet 1 Active aspirin 81 mg chewable tablet Take 1 tablet (81 mg total) by mouth daily for 14 days. 14 tablet Active Additional Information Patient not taking.Reported on 06/08/2025 Active Problems Problem Noted Date Diagnosed Date Status post reverse arthroplasty of shoulder, le ft 06/20/2025 Sleep apnea 02/09/2025 Overview (02/09/2025): has CPAP- uses on a regular basis but not daily Abnormal CT of the abdomen 08/06/2024 Primary osteoarthritis of left knee 10/23/2023 Primary osteoarthritis of left shoulder 07/28/20 23 Assessment & Plan (07/29/2023 5:28 AM EST): Reports ongoing right shoulder pain. Mentions he does have good and bad days. Mentions the symptoms have not progressed since the last visit. He still continues to do 40 pushups. He does not bench press much. He uses light weights. He does water ski and does cycling without difficulty. He does feel body soreness if he discontinues gym even for a week. Has certain limitations. Has difficulty going golfing. There are days when he has difficulty tucking his shirt. He had difficulty ice skiing last year. He is s/p ACL reconstruction followed by knee injury. The knee provider has advised him to discontinue water-skiing if he wants to proceed with knee replacement. His mom passed at the age of 82 a year ago and hsi father at age of 45 with h/o hemochromatosis and of liver disease Clinical Impression: Overall well compensated advanced degenerative arthritis of the shoulder. No significant radiographic changes since last visit 2 years ago. He is very well compensated QUICKDASH and PROM's of upper extremity, both demonstrating excellent functional status. We spoke regarding treatment options. Clinical observation over a period of time. We may eventually come to shoulder arthroplasty for functional reasons but continues to be without significant pain and maintains high quality of life. Reviewed and discussed past medical records. Discussed imaging in detail which are unchanged from 2020. Left shoulder pain is from advanced degenerative arthritis. Discussed etiology, pathophysiology, and treatment options for arthritis. Reviewed and discussed QuickDASH, PROMs and PROMIS scores along with its significance. His PROMs QuickDASH score is 13. Discussed treatment options going forward. Recommended clinical observation over a period of time as radiographically the arthritis is not overall progressed. Discussed the goal of the surgery is pain relief and functional improvement. Shoulder arthroplasty can l certainly be considered over a period of time if needed Recommended being physically active. Follow-up as needed. Left shoulder pain 01/10/2021 Leukopenia 05/05/2019 Macrocytosis without anemia 05/05/2019 Encounters Date Type Department Care Team Description 06/20/2025 11:30 AM EDT Office Visit [facility] Department of [place]opaedic Surgery [place] [address] [place] [address] Alexandro Meza PA-C Status post reverse arthroplasty of shoulder, left (Primary Dx) 06/20/2025 11:15 AM EDT - 06/20/2025 11:59 PM EDT Hospital Encounter [facility] Orthopaed[place] [facility] [address] [place] [address] Alexandro Meza PAHarley Discharge Disposition: Home or Self Care 06/16/2025 Orders Only [facility] Department of Orthopaedic Surgery - [place] [address] [place] [address] Broussard, Juliane Pain (Primary Dx) 06/09/2025 Telephone [facility] [address] [place] [id number] Shu Frank, MSN, COMMUNICATIONS TECHNOLOGIST 06/08/2025 7:31 AM EDT Anesthesia Event [facility] Periop Dept [address] [place] [address] Vince Mccarty MD Gallagher, Judy A RN 06/08/2025 7:30 AM EDT - 06/08/2025 11:02 AM EDT Surgery [facility] Periop Dept [address] [place] [address] Fernando Zaragoza MD REVERSE ARTHROPLASTY SHOULDER ([id number] [phone]) 06/08/2025 6:14 AM EDT - 06/08/2025 1:22 PM EDT Hospital Encounter [facility] [address] [address] Fernando Zaragoza MD Discharge Disposition: Home or Self Care 06/08/2025 Procedure Pass [facility] [address] [place] [address] 06/06/2025 Orders Only [facility] [place] Department of Orthopaedic Surgery [address] [place] [address] Alexandro Meza PA-C 05/13/2025 11:15 AM EDT Telemedicine - audio only [facility] Department of Orthopaedic Surgery [address] [place] [address] Alexandro Meza PA-C Primary osteoarthritis of left shoulder (Primary Dx) 05/13/2025 Orders Only [facility] Department of Orthopaedic Surgery - [address] [facility] [address] [place] [address] Alexandro Meza PA-C 04/21/2025 2:38 PM EDT - 04/21/2025 11:59 PM EDT Hospital Encounter [facility] [place] [address] [place] [id number] Fernando Zaragoza MD Discharge Disposition: Home or Self Care 04/21/2025 3:00 AM EDT - 04/21/2025 2:37 PM EDT Hospital Encounter [facility] 3DCTMR [address] [place] [address] Fernando Zaragoza MD Discharge Disposition: Home or Self Care 03/28/2025 Procedure Pass [facility] IMG 3DCTMR [address] [place] [address] 02/02/2025 Procedure Pass [facility] [place] [address] [address] from Last 3 Months Social History Tobacco Use Types Packs/Day Years Used Date Smoking Tobacco: Never Smokeless Tobacco: Never Tobacco Cessation:Counseling Given: Not Answered Alcohol Use Standard Drinks/Week Comments Yes 0 [...] Orientation Straight 12/27/2020 4: 53 PM EDT Last Filed Vital Signs Vital Sign Reading Time Taken Comments Blood Pressure 105/75 06/08/2025 12:53 PM EDT Pulse 73 06/08/2025 12:53 PM EDT Temperature 36.2 C (97.2 F) 06/08/2025 11:29 AM EDT Respiratory Rate 19 06/08/2025 12:53 PM EDT Oxygen Saturation 96% 06/08/2025 12:53 PM EDT Inhaled Oxygen Concentration - - Weight 77.1 kg (170 lb) 06/08/2025 6:39 AM EDT Height 177.8 cm (5' 10 ) 06/08/2025 6:39 AM EDT Body Mass Index 24.39 06/08/2025 6:39 AM EDT Plan of Treatment Health Maintenance Due Date Last Done Comments Adult Td,Tdap Booster 1957 LIPID PANEL 1957 DEPRESSION SCREENING 1969 HEPATITIS C SCREENING 1975 COLOGUARD 2002 COLONOSCOPY 2002 COLORECTAL CANCER SCREENING 2002 FIT TEST 2002 FOBT 2002 SIGMOIDOSCOPY 2002 VIRTUAL COLONOSCOPY 2002 PNEUMOCOCCAL VACCINES (50+ years) (1 of 1 - PCV) 2007 INFLUENZA VACCINE (#1) 2025 2, 06/07/2021, 05/18/2020, Additional history exists COVID-19 VACCINE ( season) 2025 06/18/2022, 08/28/2021, 11/24/2020 RSV VACCINE (1 - 1-dose 75+ series) 02/17/2032 ZOSTER VACCINES Completed 09/27/2022, 09/11/2021 SMOKING STATUS SCREENING (Once After 26 Yrs) Completed 05/26/2025 HEPATITIS A VACCINES Aged Out No long er eligible based on patient's age to complete this topic HIB VACCINES Aged Out No longer eligi ble based on patient's age to complete this topic MENINGOCOCCAL VACCINES (ACWY) Aged Out No longer eligible based on patient's age to complete this topic MENINGOCOCCAL VACCINES (B) Aged Out N o longer eligible based on patient's age to complete this topic Medical Devices Implanted Type Area Nursing Aide Device Identifier Shelf Expiration Date Model / Serial / Lot Post Press-Fit Short 7mm Perform Reversed Threaded Aequalis - [id number] Implanted:Qty: 1 on 06/08/2025 by Fernando Zaragoza MD at [facility] Left: Shoulder [employer] 11/24/2029 [id number] / [id number] / NA Description:The implant type , laterality (when applicable), size, and expiration date have been visually and verbally confirmed by the Surgeon, Circulating RN and Scrub Personnel. Baseplate Glenoid 29mm Aequalis Standard - [id number] Implanted:Qty: 1 on 06/08/2025 by Fernando Zaragoza MD at [facility] Left: Shoulder [employer] 03/20/2029 [id number] / [id number] / NA Description:The implant type , laterality (when applicable), size, and expiration date have been visually and verbally confirmed by the Surgeon, Circulating RN and Scrub Personnel. Screw Bone 5x14mm Perform Reverse - Sna Implanted:Qty: 2 on 06/08/2025 by Fernando Zaragoza MD at [facility] Left: Shoulder [employer] 05/26/2026 [id number] / [id number] / [id number] Description:The implant type , laterality (when applicable), size, and expiration date have been visually and verbally confirmed by the Surgeon, Circulating RN and Scrub Personnel. Screw Bone 5x22mm Perform Reverse - Sna Implanted:Qty: 1 on 06/08/2025 by Fernando Zaragoza MD at [facility] Left: Shoulder [employer] 05/30/2026 [id number] / [id number] / [id number] Description:The implant type , laterality (when applicable), size, and expiration date have been visually and verbally confirmed by the Surgeon, Circulating RN and Scrub Personnel. Glenosphere Component 42mm Standard - [id number] Implanted:Qty: 1 on 06/08/2025 by Fernando Zaragoza MD at [facility] Left: Shoulder [employer] 12/21/2029 [id number] / [id number] / NA Description:The implant type , laterality (when applicable), size, and expiration date have been visually and verbally confirmed by the Surgeon, Circulating RN and Scrub Personnel. Stem Frature Size 12 L 130mm Perform Humeral - [id number] Implanted:Qty: 1 on 06/08/2025 by Fernando Zaragoza MD at [facility] Left: Shoulder [employer] [id number] 01/24/2030 [id number] / [id number] / NA Description:The implant type , laterality (when applicable), size, and expiration date have been visually and verbally confirmed by the Surgeon, Circulating RN and Scrub Personnel. Procedures Procedure Name Priority Date/Time Associated Diagnosis Comments XR SHOULDER 2 VIEWS (LEFT) Routine 06/20/2025 11:20 AM EDT Pain AIRWAY PLACEMENT Routine 06/08/2025 7:51 AM EDT ANES BLOOD PATCH PERFORMABLE Routine 06/08/2025 7:28 AM EDT OR ANESTHESIA PERIPHERAL BLOCK PLACEHOLDER Routine 06/08/2025 7:28 AM EDT ABO AND RH Routine 06/08/2025 7:18 AM EDT OR RECONSTR TOTAL SHOULDER IMPLANT 06/08/2025 7:00 AM EDT Primary osteoarthritis of left shoulder Special Needs Mimi - Leia OR RECONSTR TOTAL SHOULDER IMPLANT 06/08/2025 7:00 AM EDT Primary osteoarthritis of left shoulder Special Needs Mimi - Leia ANESTHESIA POINT OF CARE IMAGE CAPTURE Routine 06/08/2025 6:58 AM EDT HC BLOOD TYPING SEROLOGIC ABO STAT 06/08/2025 6:[address] 3D RECONSTRUCTION SHOULDER Routine 04/21/2025 4:53 PM EDT Primary osteoarthritis of left shoulder CT SHOULDER WITHOUT CONTRAST (LEFT) Routine 04/21/2025 3:10 PM EDT Primary osteoarthritis of left shoulder from Last 3 Months Results * XR SHOULDER 2 VIEWS (LEFT) (06/20/2025 11:20 AM EDT) Anatomical Region Laterality Modality Shoulder Left Radiographic Slime ging 06/20/2025 2:53 PM EDT Impressions 06/20/2025 2:53 PM EDT Interval reverse total shoulder arthroplasty, no complication. Narrative 06/20/2025 2:53 PM EDT XR SHOULDER 2 OR MORE VIEWS (LEFT) Referring clinician's provided indication for this examination in Epic: Pain COMPARISON: XR SHOULDER 2 OR MORE VIEWS (LEFT) FINDINGS: Interval reverse total shoulder arthroplasty. Hardware is intact and in anatomic position. No periprosthetic lucency or fracture. Degenerative changes of the acromioclavicular joint. Procedure Note Bry Friedman MD - 06/20/2025 XR SHOULDER 2 OR MORE VIEWS (LEFT) Referring clinician's provided indication for this examination in Epic:Pain COMPARISON: XR SHOULDER 2 OR MORE VIEWS (LEFT) FINDINGS: Interval reverse total shoulder arthroplasty. Hardware is intact and inanatomic position. No periprosthetic lucency or fracture. Degenerativechanges of the acromioclavicular joint. IMPRESSION: Interval reverse total shoulder arthroplasty, no complication. us Alexandro Meza PA-C IMG XR UPPER EXTREMITY Fin al Result * ANES ETT DOUBLE LUMEN - AIRWAY LDA (06/08/2025 7:51 AM EDT) Narrative Elena Cage CRNA - 06/08/2025 7:51 AM EDT Elena Cage CRNA 06/08/2025 8:23 AM Airway Placement Procedure Note: Patient was not difficult to intubate. Procedure performed by: fellow/resident/STATE GAME WARDEN Anesthesiologist: Vince Mccarty MD Fellow/Resident/STATE GAME WARDEN: Elena Cage CRNA Airway procedure initiated at:06/08/2025 7:51 AM and ended at. Personal Protective Equipment: Mask: surgical mask Eye Protection: eye shield Gloves: gloves Mask Ventilation: Quality: easy with adjunct Adjunct: oral airway Airway Placement: Technique: video laryngoscopy Rapid sequence induction: no Details: Blade type: Vitale Blade size: 4 Video view: grade 1 Video Laryngoscopy was: elective Number of attempts: 1 ETT type: cuffed ETT size: 7.5 ETT depth at teeth: 23 Tube position confirmed by: bilateral breath sounds and EtCO2 Outcomes: Evidence of dental injury? no Complications observed? no us Vince Mccarty MD OR ANESTHESIA Final Result * OR ANESTHESIA PERIPHERAL BLOCK PLACEHOLDER, ANES BLOOD PATCH PERFORMABLE (06/08/2025 7:28 AM EDT) Narrative Vince Mccarty MD - 06/08/2025 7:28 AM EDT Vince Mccarty MD 06/08/2025 7:34 AM Peripheral Block Placement Procedure Note: Start Time: 06/08/2025 7:28 AM Reason for block: surgeon request, at patient's request and post op pain managment Block performed by: anesthesiologist Anesthesiologist: Vince Mccarty MD [place] Protocol Performed: consent obtained, patient identified with 2 identifiers, correct procedure verified, correct site and laterality confirmed, verified equipment, coagulation status reviewed and implant history reviewed. Procedure Details: ASA monitors applied during procedure and vitals signs recorded in nursing flowsheet during procedure. Block type: single shot Ultrasound device used: Sonosite PX Laterality: left Block location: upper extremity and interscalene brachial plexus Patient position: semi recumbent. Prep: chloraprep Image guidance: ultrasound guidance Ultrasound image: stored Needle visualization: good and in-plane Nerve visualization: good Block Technique Block technique: ultrasound guided Needle type: stimulating needle used Needle gauge: 22 Injection assessment:incremental injection, negative aspiration for heme and no paresthesia on injection Paresthesia: none Needle length: 5cm Post Block Placement Assessment Complications Observed: No Notes Block Notes: Lidocaine 2% local SC infiltration at site. The roots of the brachial plexus were identified with ultrasound and the needle was advanced through the middle scalene and prevertebral fascia using hydrodissection. The local anesthetic was injected posterior to the upper trunk/C5-C6 nerve roots of the brachial plexus distributing around the nerves. The local anesthetic was incrementally and easily injected with negative aspiration. No paresthesias were experienced. The procedure was well tolerated by the patient. 20mL ropivacaine 0.5% used. Vince Mccarty MD OR ANESTHESIA Final Result * ABO and Rh (06/08/2025 7:18 AM EDT) ABO/Rh O Positive [facility] WOOD WEB WEAVING MACHINE OPERATOR ID [id number] [facility] Resulting Agency NS [facility] Blood 06/08/2025 7:18 AM EDT 06/08/2025 7:25 AM EDT Fernando Zaragoza MD LAB BLOOD BANK TEST ORDERABLES [place] [address], [facility] [phone] * ANESTHESIA POINT OF CARE IMAGE CAPTURE (06/08/2025 6:58 AM EDT) Anatomical Region Laterality Modality Ultrasound Narrative 06/08/2025 6:58 AM EDT Vince Mccarty MD 06/08/2025 6:58 AM Anesthesia Point of Care Image Capture Performed by: Vince Mccarty MD Authorized by: Vince Mccarty MD Accession Number: [id number] Vince Mccarty MD IMG POINT OF CARE EXAMS Final Re sult * Type and Screen (ABO,Rh,Antibody Screen) (06/08/2025 6:54 AM EDT) Expiration Date of Sample 06/11/2025,2 359 [facility] ABO/Rh O Positive [facility] Antibody Screen Negative [facility] Resulting Agency NS [facility] Blood 06/08/2025 6:54 AM EDT 06/08/2025 6:58 AM EDT Vince Mccarty MD LAB BLOOD BANK TEST ORDERABLES [place] [address], [facility] [phone] * CT 3D Reconstruction Shoulder (04/21/2025 4:53 PM EDT) Anatomical Region Laterality Modality Shoulder Left, Shoulder Right Co mputed Tomography 05/06/2025 11:5 8 AM EDT Narrative 05/06/2025 1:19 PM EDT Please refer to the primary CT accession number [id number] for the full report indicating 3D images were created on an independent workstation and interpreted. Procedure Note Mahamed Castillo MD - 05/06/2025 Please refer to the primary CT accession number [id number] for the fullreport indicating 3D images were created on an independent workstation andinterpreted. us Fernando Zaragoza MD IMG CT Final Result * CT SHOULDER WITHOUT CONTRAST (LEFT) (04/21/2025 3:10 PM EDT) Anatomical Region Laterality Modality Shoulder Left Computed Tomogra phy 04/24/2025 9:14 AM EDT Addenda Addendum by Mahamed Castillo MD on 05/06/2025 1:19 PM EDT ADDENDUM: 3D images were created on an independent workstation and interpreted. Impressions 04/24/2025 11:05 AM EDT Severe left glenohumeral joint degenerative changes with multiple loose bodies and a moderate joint effusion. ATTESTATION: I, Dr. Mahamed Elliott as teaching physician, have reviewed the images for this case and if necessary edited the report originally created by Nicole Gonzalez. Narrative 04/24/2025 11:[address] SHOULDER WITHOUT CONTRAST (LEFT) Referring clinician's provided indication for this examination in [facility]: * Shoulder pain, chronic, osteoarthritis suspected TECHNIQUE: Multidetector-row CT of the shoulder, without intravenous contrast using dose-modulation techniques. Images were reconstructed in the axial, coronal, and sagittal planes. COMPARISON: MRI SHOULDER WITHOUT CONTRAST (LEFT) ; XR SHOULDER 2 OR MORE VIEWS (LEFT) ; XR SHOULDER 2 OR MORE VIEWS (LEFT) FINDINGS: Bones and Joints: Redemonstrated is severe left glenohumeral joint degenerative changes with jeok-tn-mtru articulation, subchondral cyst formation, and extensive osteophyte formation most notable at the inferior humeral head. Multiple loose bodies are seen within a moderate joint effusion, measuring up to 2.5 cm. Soft Tissues: Rotator cuff muscles better assessed on prior MRI. Lungs are clear. Procedure Note Mahamed Castillo MD - 04/24/2025 CT SHOULDER WITHOUT CONTRAST (LEFT) Referring clinician's provided indication for this examination in [facility]: *Shoulder pain, chronic, osteoarthritis suspected TECHNIQUE: Multidetector-row CT of the shoulder, without intravenouscontrast using dose-modulation techniques. Images were reconstructed inthe axial, coronal, and sagittal planes. COMPARISON: MRI SHOULDER WITHOUT CONTRAST (LEFT) ; XR SHOULDER2 OR MORE VIEWS (LEFT) ; XR SHOULDER 2 OR MORE VIEWS (LEFT) FINDINGS: Bones and Joints: Redemonstrated is severe left glenohumeral jointdegenerative changes with shjh-ls-ijnt articulation, subchondral cystformation, and extensive osteophyte formation most notable at the inferiorhumeral head. Multiple loose bodies are seen within a moderate jointeffusion, measuring up to 2.5 cm. Soft Tissues: Rotator cuff muscles better assessed on prior MRI. Lungs areclear. IMPRESSION: Severe left glenohumeral joint degenerative changes with multiple loosebodies and a moderate joint effusion. ATTESTATION: I, Dr. Mahamed Elliott as teaching physician, have reviewedthe images for this case and if necessary edited the report originallycreated by Nicole Gonzalez. Fernando Zaragoza MD IMG CT EXTREMITY Edited Result - Final from Last 3 Months Insurance MEDICARE PART A & B [facility] MEDICARE SUPPLEMENT MEDICARE PART A & B Member Subscriber Plan / Payer (Ef fective 2024-) Name:TRESA COOK Member ID:[id number] Relation to Subscriber:Self Name:Tresa Cook Jr. Subscriber ID:[id number] Payer ID:[id number] Group ID:Not on file Type:Medicare Address: [facility] [address] [place], [place] [id number] [address] MEDICARE SUPPLEMENT MEDICARE PART A & B [facility] MEDICARE SUPPLEMENT MEDICARE PART A & B [facility] MEDICARE SUPPLEMENT MEDICARE PART A & B [facility] MEDICARE SUPPLEMENT MEDICARE PART A & B [facility] MEDICARE SUPPLEMENT Care Teams Buyer Grain Relationship Specialty Start Date End Date Cole Duarte MD [address] [place] [address] PCP - General Internal Medicine 12/27/20 Additional Source Comments The information contained in this document represents components of the legal health record. It is not the complete legal health record.[facility]
--- OUTSIDE RECORDS SUMMARY | 2025-07-22 11:43 | XMS_ITS | Continuity of Care Document ---
Author Organization [place] - [facility], [facility] Address [address] [place] [address] Care Team Providers Care Instrumentation Designer Name Role Phone DANIEL IRWIN Primary Care Provider Assessment Encounter Date Assessment Date Assessment LastModified [...] accumulation. Additionally, he is instructed to purchase [id number] Flonase (fluticasone nasal spray) to be used [...] in a dose pack [address] [facility]/Pharmacy #[id number], [address] [facility], [place], [address], 07/21/2025 16:09:45 Patient TargetsNo targets recorded. Patient Instructions Encounter Date Encounter Id Patient Instructions Last Modified By Organization Details Last Modified Time 07/21/2025 [id number] - Begin Medrol dose pack as prescribed. - Purchase and use Flonase nasal spray daily, two puffs per nostril. - Perform Valsalva maneuver up to 10 times daily to help clear fluid. - Monitor symptoms and report any significant changes. - Follow up in one month or sooner if symptoms worsen. [email or web address] Not available 07/21/2025 16:14:15 Please note: Parts of this encounter note have been generated by AI based on audio conversation. Patient consent was required prior to utilizing this technology. Content review was required prior to finalizing the note. [email or web address] Not available 07/21/2025 16:14:15 Reason for Referral [...] Recorded Time Obstructi ve sleep apnea syndrome 06439092 Active 2021 Obstructi ve sleep apnea (adult) (pediatri c); Note: Date Diagnosed : 01/22/2022 4:13 PM (G47.33) Not Available [facility] 4 03:32:52 Snoring 88953371 Active 2021 Snoring; Note: Date Diagnosed : 01/22/2022 4:13 PM (R06.83) Not Available [facility] 4 03:32:52 Bilateral hearing loss 71383509 Active 2024 SOLO RIBEIRO [place], [facility] [address], [place], [address] , [place] - [facility] 15:20:56 Mixed conductiv e AND sensorine ural hearing loss 49067798 Active 2024 SOLO RIBEIRO [place], [facility] [address] [facility],[address], [place], [address] , [place] [facility] 15:21:14 Chronic serous otitis media of right ear 214461582 Active 2024 JORGITO PUENTE MD [address] [facility],[place] [address], [place], [address] , [place] - [facility] 16:07:49 Dysfuncti on of right eustachia n tube [id number] [address] [facility] 2024 JORGITO PUENTE MD [address] [facility],[place] [address], [place], [address] , [place] [facility] 16:08:07 Problem Notes None recorded. Procedures Surgical History Date Name Laterality Status Provider Name and Address Organization Details Recorded Time 025 Fiberoptic Nasopharyngoscopy completed JORGITO PUENTE MD [address] [facility],[place] [address], [place], [address], [place] - [facility] 07/21/2025 16:07:21 025 Comp Audio with Tymps - 41331 & 03348 completed SOLO RIBEIRO [place], [facility] [address] [facility],[place] [address], [place], [address], [place] [facility] 07/21/2025 15:21:40 total knee replacement completed Luzma Gandara [place] - [facility] 07/21/2025 15:42:07 total shoulder replacement completed Luzma Gandara [place] - [facility] 07/21/2025 15:42:15 appendectomy completed Luzma Gandara [place] - [facility] 07/21/2025 15:42:20 excision of skin carcinoma completed Luzma Gandara [place] - [facility] 07/21/2025 15:43:06 Imaging Results None recorded. Procedure Notes None recorded. Medical Equipment None Reported. Allergies Allergen ID Allergen Name Allergen Category Reaction Reaction Severity Criticality Documentation Date Start Date Code Code System Note Provider Name and Address Organization Details Recorded Time 755033 Product containin g penicilli n (product) medicatio n Not available Not available Not available 07/21/20252018 52659 8001 SNOMED Not Available [place] - External Data Service - prod 5 14:24:00 06961 Penicilli n Not available other Not available Not available 01/13/2024 38248 RxNorm React ion: Unkno wn; Not Available [facility] 00:49:06 Medications Name Sig Start Date Stop [...] Updated DateTime 07/21/2025 177.8 cm 25.1 kg/m2 67189.66 g Luzma Gandara [place] - [facility] 07/21/2025 15:41:26 Social History None recorded. Functional Status None recorded. Mental Status None recorded. Family History Nothing Reported. Medical History Condition Response Cancer Y Arthritis Y Past Encounters Encounter ID Performer Location Encounter Start Date Encounter Closed Date Diagnosis/Indication Diagnosis SNOMED-CT Code Diagnosis ICD10 Code Diagnosis IMO Codes Diagnosis Note [id number] JORGITO PUENTE MD [facility] [address] [address] 07/21/2025 14:25:31 07/21/2025 16:37:03 Chronic serous otitis media of right ear 525461550 H65.21 838944 Dysfunctio n of right eustachian tube 0660425597 871601 H69.91 46296391 Bilateral hearing loss 86314072 H90.A22 [id number] Audiologic al evaluation results:Ri ght ear:Mild to severe mixed hearing loss with excellent word recognitio n.Left ear:Normal hearing thru 2000Hz dropping to a moderate SNHL with good word recognitio n. Tympanomet ry:Right Ear:Type BLeft Ear:Type A Mixed cond uctive AND sensorineural hearing loss 37341091 H90.A31 [id number] SOLO RIBEIRO MA, CCC-A [facility] [address] [address] 07/21/2025 14:25:00 07/21/2025 16:15:48 Bilateral hearing loss 09807614 H90.A22 03190996 Audiologic al evaluation results:Ri ght ear:Mild to severe mixed hearing loss with excellent word recognitio n.Left ear:Normal hearing thru 2000Hz dropping to a moderate SNHL with good word recognitio n. Tympanomet ry:Right Ear:Type BLeft Ear:Type A Mixed cond uctive AND sensorineural hearing loss 29974197 H90.A31 [id number] Health Concerns Section Related Observation LastModified by Organization Detai ls LastModified Time None Recorded Concern Status LastModified by Organization Details LastModified Time None Recorded Payers Encounter Date Sequence Insurance Name Policy Number Policy Woodard Covered Member ID Woodard Member ID Guarantor Name 07/21/2025 1 [place] [employer] Cristopher Cook [id number] Cristopher Cook 07/21/2025 2 [employer] (MEDICARE SUPPLEMENT) Cristopher Romero Joey [id number] Cristopher Haasvera Arnold Notes Date Note Type Note Provider Name and Address Organization Details Recorded Time 07/21/2025 text/html Longstanding hearing loss becoming more pronounced. SOLO RIBEIRO [place], [facility] [address] [place] [address], [address], [facility] - [facility] 07/21/2025 15:23:50 07/21/2025 text/html Cristopher Cook [...] particularly at night. An MRI performed at [facility] revealed fluid behind the right eardrum, [...] nose and shoulder replacement. JORGITO PUENTE MD [address] [place] [address], [place], [address], [facility] - [facility] 07/21/2025 17:36:11
--- OUTSIDE RECORDS SUMMARY | 2025-07-22 11:43 | XMS_ITS | Clinical Summary ---
Author Organization [facility] [address] [facility] Address [address] [place] [address] Phone Care Team Providers Care Palliative Care Nurse Practitioner Name Role Phone Cole Duarte MD Primary Care Provider [phone] Allergies Active Allergy Reactions Criticality Noted Date Comments Penicillins 05/05/2019 Medications estazolam (PROSOM) 2 mg tablet 08/31/2019 Active multivitamin (MULTIPLE VITAMINS ORAL) Take by mouth. Active triamcinolone (KENALOG) 0.1 % cream Apply to affected area BID x 2 weeks 09/13/2020 Active Active Problems Problem Noted Date Diagnosed Date Abnormal CT of the abdomen 08/06/2024 Assessment & Plan (08/06/2024 11:20 AM EST): 69-year-old gentleman presenting with abdominal pain at the 10-day point with imaging revealing inflammatory changes of the cecum, appendix and right colon. Differential diagnosis for his pathology includes appendicitis, infectious colitis, less likely IBD, polyp or malignancy. Interestingly, with conservative management, the patient's symptoms have resolved. We did review his colonoscopy from November 2020 which was essentially unremarkable, though, I explained to the patient that was 3 and half years ago. Currently the patient is back to baseline. He is eating. His activity is normal, in fact he has an upcoming ski trip planned for September 2024. Mr. Cook and I discussed the options of a repeat CT scan to reevaluate his status. We also discussed the role of a repeat colonoscopy should that be negative to be complete. He seemed interested in going forward with both. 1. CT scan of abdomen pelvis to reevaluate the inflammatory change. This will be scheduled at [facility] at patient's request. 2. Should that be negative, we will arrange for colonoscopy upon patient's return from his ski trip to be complete. 3. The patient was instructed to contact me should he have recurrent symptoms. Orders: CT Abdomen Pelvis wo and w Contrast; Future CT Abdomen Pelvis wo and w Contrast Encounters Date Type Department Care Team Description 07/20/2025 3:17 PM EST - 07/20/2025 11:59 PM EST Hospital Encounter [facility] MRI [address] [place] [address] Unspecified hearing loss, right ear Discharge Disposition: Home or Self Care from Last 3 Months Surgical History Surgery Date Site/Laterality Comments COLONOSCOPY 11/30/2020 - 12/29/2020 Medical History Medical History Date Comments Historical Medical DX 05/20/2018 DX:NO ACTI VE MEDICAL PROBLEMS History of melanoma 09/09/2019 DX:History o f melanoma; COMMENT: Per patient years ago left forearm -early melanoma Social History Tobacco Use Types Packs/Day Years [...] Orientation Straight 08/13/2024 12 :05 PM EST Obstetrics History Last Filed Vital Signs Vital Sign Reading Time Taken Comments Blood Pressure - - Pulse - - Temperature - - Respiratory Rate - - Oxygen Saturation - - Inhaled Oxygen Concentration - - Weight 78.9 kg (174 lb) 08/06/2024 10:34 AM EST Height 177.8 cm (5' 10 ) 08/06/2024 10:34 AM EST Body Mass Index 24.97 08/06/2024 10:34 AM EST Plan of Treatment Health Maintenance Due Date Last Done Comments DTaP,Tdap,and Td Vaccines (1 - Tdap) 02/17/1976 Pneumococcal Vaccine: 50+ Years (1 of 1 - PCV) 2007 Abdominal Aortic Aneurysm (AAA) Screen 07/31/2022 Cholesterol Screening (Lipid Panel) 07/31/2022 Falls Risk Assessment 07/31/2022 Hepatitis C Screening 07/31/2022 Medicare Annual Wellness Visit 07/31/2022 Social Influencers of Health Screening 07/31/2022 Depression Screening 09/01/2024 COVID-19 Vaccine ( season) 2025 06/18/2022, 08/28/2021, 12/15/2020, Additional history exists Influenza Vaccine (#1) 2025 , 06/07/2021, 05/18/2020, Additional history exists RSV Immunization Adult Patients (1 - 1-dose 75+ series) 02/17/2032 Colorectal Cancer Screening: Colonoscopy 10/04/2034 10/04/2024, 08/09/2024, 08/09/2024 Zoster Vaccines Completed 09/27/2022, 09/11/2021 HIB Vaccines Aged Out No longer eligi ble based on patient's age to complete this topic HPV Vaccines Aged Out No longer eligi ble based on patient's age to complete this topic Hepatitis A Vaccines Aged Out No long er eligible based on patient's age to complete this topic Hepatitis B Vaccines Aged Out No long er eligible based on patient's age to complete this topic IPV Vaccines Aged Out No longer eligi ble based on patient's age to complete this topic MMR Vaccines Aged Out No longer eligi ble based on patient's age to complete this topic Meningococcal ACWY Vaccine Aged Out N o longer eligible based on patient's age to complete this topic Meningococcal B Vaccine Aged Out No l onger eligible based on patient's age to complete this topic RSV Immunization Patients Under 20 months Aged Out No longer eligible based on patient's age to complete this topic Varicella Vaccines Aged Out No longer eligible based on patient's age to complete this topic Procedures Procedure Name Priority Date/Time Associated Diagnosis Comments MR BRAIN WO AND W CONTRAST Routine 07/20/2025 4:19 PM EST Unspecified hearing loss, right ear EXTERNAL COLONOSCOPY REPORT Routine 10/04/2024 4:03 PM EST from Last 3 Months or Most Recently Relevant to Health Maintenance Results * MR Brain wo and w [...] -------- FINAL REPORT -------- Dictated By: JONNIE GARVIN Dictated Date: 07/21/2025 12:00 ET Assigned Physician: JONNIE GARVIN Reviewed and Electronically Signed By: JONNIE GARVIN Signed Date: 07/21/2025 12:03 ET Workstation ID: [id number] Transcribed By: Self Edit Transcribed Date: 07/21/2025 [...] normal. Calvarium is normal. Procedure Note Jonnie Garvin MD - 07/21/2025 PROCEDURE: Brain MRI INDICATION: [...] -------- FINAL REPORT -------- Dictated By: JONNIE GARVIN Dictated Date: 07/21/2025 12:00 ET Assigned Physician: JONNIE GARVIN Reviewed and Electronically Signed By: JONNIE GARVIN Signed Date: 07/21/2025 12:03 ET Workstation ID: [id number] Transcribed By: Self Edit Transcribed Date: 07/21/2025 12:00 ET Cole Duarte MD IMG MRI PROCEDURES Final Res ult * External Colonoscopy Report (10/04/2024 4:03 PM EST) Anatomical Region Laterality Modality Endoscopy Historical Provider GI~PROCEDURE ORDERABLES F inal Result from Last 3 Months or Most Recently Relevant to Health Maintenance Insurance MEDICARE [facility] Care Teams Palliative Care Nurse Practitioner Relationship Specialty Start Date End Date Cole Duarte MD [address] [place] [phone] PCP - General Internal Medicine 02/16/18
== END 2025-07-22 11:55 | disposition home or self-care (01) ==
LOC: HO.HUSH 10:52
PROVIDERS: PCP Internal Medicine; Visit Provider Urology
DX: N40.1 Benign prostatic hyperplasia with lower urinary tract symptoms (principal); R33.9 Retention of urine, unspecified
CPT/HCPCS: 99214

== ENCOUNTER → 2025-07-22 10:51 | Outpatient (BNVA) | payer MEDICARE, SELFPAY | PROVIDERS: PCP Internal Medicine; Visit Provider Urology | DX: N40.1 Benign prostatic hyperplasia with lower urinary tract symptoms (principal); R33.9 Retention of urine, unspecified; R97.20 Elevated prostate specific antigen [PSA]; R39.12 Poor urinary stream; R35.0 Frequency of micturition | CPT/HCPCS: 51798; 99212 ==